=== PATIENT | female | born 1950 | race Caucasian/White ===

== ENCOUNTER 2018-02-15 12:15 | Observation (INO) ==
[2018-02-15] MEDS ORDERED: Nitroglycerin 0.4 MG TAB.SUBL SL PRN (12:43)
[2018-02-15] MEDS ORDERED: Isovue-370 500 ML INFUS..BTL IV ONE (12:44)
[2018-02-15] MEDS ORDERED: Ondansetron 4 MG/2 ML VIAL IVP ONE (12:45)
[2018-02-15] MEDS ORDERED: 0.9 % Sodium Chloride 500 ML IVC ONE (12:45)
--- NOTE | 2018-02-15 13:01 | Emergency Department Note ---
Disposition Clinical Impression: Iron deficiency Chest pain Qualifiers: Chest pain type: other chest pain Qualified Code(s): R07.89 - Other chest pain Back pain Qualifiers: Back pain location: back pain in unspecified location Chronicity: unspecified Back pain laterality: unspecified Qualified Code(s): M54.9 - Dorsalgia, unspecified Disposition: Admitted As Inpatient Time of Disposition: 14:56 Chest Pain HPI - General Chief Complaint: ED Chest Pain Stated Complaint: CP Time Seen by Provider: 02/15/18 12:18 Source: patient Mode of arrival: ambulatory Limitations: no limitations Vital Signs Reviewed: Yes Nursing Notes Reviewed: Yes - History of Present Illness HPI Narrative: 67-year-old female with history of hypertension, diabetes since for evaluation of chest pain. Patient states that approximately early this morning she started to have right sided chest pain under her armpit. Notes it to be radiating into her back. Patient denies history of this pain in the past. Patient denies history of heart attacks. Does have a history of known aortic stenosis. Patient notes pain is not relieved with anything. No history of coronary artery disease. Reports some nausea but no vomiting. No abdominal pain. Notes shortness of breath related to the chest pain. No fevers or cough. Severity scale (1-10): 8 - Related Data Home Medications Medication Instructions Recorded Confirmed Citalopram [CeleXA] 20 mg PO HS 11/17/15 02/15/18 Esomeprazole Magnesium [Nexium] 40 mg PO HS 11/17/15 02/15/18 Losartan/Hydrochlorothiazide 1 each PO HS 11/17/15 02/15/18 [Hyzaar 100-25 Tablet] Albuterol Sulfate [Ventolin Hfa] 2 puff IH Q4H PRN 12/19/16 02/15/18 Fluticasone Propionate Nasal 2 spr NS DAILY 12/19/16 02/15/18 [Flonase] Fluticasone/Salmeterol [Advair 1 puff IH BID 12/19/16 02/15/18 500-50 Diskus] Allergies Allergy/AdvReac Type Severity Reaction Status Date / Time Sulfa (Sulfonamide Allergy Anaphylaxis Verified 02/15/18 16:07 Antibiotics) Beta-Blockers AdvReac See Verified 02/15/18 16:07 (Beta-Adrenergic Bloc Comments All systems ED: reviewed and negative except as stated. Constitutional: Denies: fever Cardiovascular: Reports: chest pain Respiratory: Reports: dyspnea. Denies: cough Gastrointestinal: Reports: nausea. Denies: abdominal pain, vomiting Musculoskeletal: Reports: back pain Chest Pain PMH - Past Medical History Medical history: Reports: diabetes, hyperlipidemia, hypertension Surgical history: Reports: hysterectomy, knee replacement, orthopedic, other, other Psychiatric history: Reports: depression - Social History Smoking Status: Never smoker Alcohol use: Reports: none, occasionally Drug use: Reports: none Physical Exam - General Limitations: no limitations General appearance: alert, other (Appears uncomfortable) - Head Head exam: atraumatic, normocephalic, normal inspection - Eye Eye exam: Present: normal appearance, PERRL, EOMI - ENT ENT exam: normal exam, normal oropharynx, mucous membranes moist - Neck Neck exam: Present: normal inspection - Chest Chest inspection: Present: normal inspection, symmetric chest wall rise - Respiratory Respiratory exam: Present: normal lung sounds bilaterally. Absent: respiratory distress - Cardiovascular Cardiovascular exam: Present: regular rate, normal rhythm, systolic murmur ( Right sided tunnel border) - Abdominal Exam Abdominal exam: Present: soft, Non-Tender. Absent: guarding, rebound - Extremities Exam Extremities exam: Present: normal inspection. Absent: pedal edema - Expanded Lower Extremity Exam Neurovascular/Tendon exam: Present: normal capillary refill - Back Exam Back exam: Present: normal inspection - Neurological Exam Neurological exam: Present: alert, oriented X3, CN II-XII intact - Skin Skin exam: Present: warm, dry, intact, normal color Course Course Narrative: Patient seen and examined. Initial concerns of chest pain with associated back pain prompted CT Emani chest abdomen pelvis. Patient was taken to the CT scan shortly after arrival to the ED. Patient also had an EKG and basic labs. Disposition likely admission for chest pain. - Reevaluation(s) Reevaluation #1: Patient states her pain has improved however the patient still complaining of some right breast tenderness. Unclear whether this is cardiac in etiology. Given the patient's discomfort noted upon arrival to the ED the patient will be observed with serial troponins. Looking back it does not appear that the patient has had a recent heart catheter here at [facility]. Patient does have known iron deficiency anemia which shows up in her labs and does have plans to get iron transfusion by GI today. Time: 14:54 Vital Signs Temperature 98.0 F 02/15/18 12:21 Pulse Rate 79 02/15/18 12:21 Respiratory Rate 20 02/15/18 12:21 Blood Pressure 182/89 02/15/18 12:21 O2 Sat by Pulse Oximetry 98 02/15/18 12:21 Temperature 98.0 F 02/15/18 16:23 Pulse Rate 53 02/15/18 16:23 Respiratory Rate 18 02/15/18 16:23 Blood Pressure 136/78 02/15/18 16:23 O2 Sat by Pulse Oximetry 97 02/15/18 16:23 Oxygen Delivery Oxygen Delivery Room Air Chest Pain - MDM Narrative Medical decision making narrative: Patient presented in acute distress with chest and back pain. Initial concerns for dissection ruled out by CT scan. Patient residual pain includes around the right breast. This is an atypical presentation. Unclear whether this is ACS related. Patient had appropriate ED evaluation with basic labs negative troponin however cannot necessarily be ruled out with the patient's presenting time. Patient heart score of 5. Patient will be admitted to the hospital service for further evaluation and monitoring regarding her chest pain. - Lab Data Lab results reviewed: Yes I reviewed the patient's lab results. Result diagrams: 02/15/18 12:49 02/15/18 12:49 Lab Results 02/15/18 02/15/18 02/15/18 Range/Units 12:49 12:49 12:49 WBC 4.7 (4.3-11.1) K/mcL RBC 4.66 (3.82-4.97) M/mcL Hgb 13.0 (11.5-15.4) g/dL Hct 39.8 (35.3-44.9) % MCV 85.4 (83.0-100.0) fL MCH 27.9 L (28.0-33.3) pg MCHC 32.7 (31.6-35.5) g/dL RDW 14.1 (11.5-14.5) % Plt Count 210 (140-400) K/mcL MPV 11.2 (9.4-12.4) fL Immature Gran % 0.2 (0-4) % Seg Neutrophils % 59.1 % Lymphocytes % 31.9 % Monocytes % 6.9 % Eosinophils % 1.5 % Basophils % 0.4 % Neutrophils # 2.8 (1.6-8.9) K/mcL Lymphocytes # 1.5 (0.6-4.6) K/mcL Monocytes # 0.3 (0.0-1.3) K/mcL Eosinophils # 0.1 (0.0-0.6) K/mcL Basophils # 0.0 (0.0-0.2) K/mcL PT 11.7 (9.4-12.1) Seconds INR 1.0 APTT 27.6 (26.0-36.0) Seconds Sodium (136-145) mEq/L Potassium (3.5-5.1) mEq/L Chloride (98-107) mEq/L Carbon Dioxide (23-29) mEq/L BUN (8-23) mg/dL Creatinine (0.60-1.20) mg/dL Est GFR ( Amer) (> 60) Est GFR (Non-Af Amer) (> 60) BUN/Creatinine Ratio (6-26) Glucose (70-105) mg/dL Calculated Osmolality (280-300) Calcium (8.6-10.3) mg/dL Troponin I (< 0.04) ng/mL B-Natriuretic Peptide 39 (Less than 100) pg/mL Lipase (11-82) Units/L 02/15/18 02/15/18 Range/Units 12:49 12:49 WBC (4.3-11.1) K/mcL RBC (3.82-4.97) M/mcL Hgb (11.5-15.4) g/dL Hct (35.3-44.9) % MCV (83.0-100.0) fL MCH (28.0-33.3) pg MCHC (31.6-35.5) g/dL RDW (11.5-14.5) % Plt Count (140-400) K/mcL MPV (9.4-12.4) fL Immature Gran % (0-4) % Seg Neutrophils % % Lymphocytes % % Monocytes % % Eosinophils % % Basophils % % Neutrophils # (1.6-8.9) K/mcL Lymphocytes # (0.6-4.6) K/mcL Monocytes # (0.0-1.3) K/mcL Eosinophils # (0.0-0.6) K/mcL Basophils # (0.0-0.2) K/mcL PT (9.4-12.1) Seconds INR APTT (26.0-36.0) Seconds Sodium 137 (136-145) mEq/L Potassium 3.7 (3.5-5.1) mEq/L Chloride 103 (98-107) mEq/L Carbon Dioxide 25 (23-29) mEq/L BUN 17 (8-23) mg/dL Creatinine 0.88 (0.60-1.20) mg/dL Est GFR ( Amer) > 60 (> 60) Est GFR (Non-Af Amer) > 60 (> 60) BUN/Creatinine Ratio 19 (6-26) Glucose 106 H (70-105) mg/dL Calculated Osmolality 286 (280-300) Calcium 9.7 (8.6-10.3) mg/dL Troponin I < 0.03 (< 0.04) ng/mL B-Natriuretic Peptide (Less than 100) pg/mL Lipase 46 (11-82) Units/L - Radiology Data Radiology results reviewed: Yes I reviewed the patient's radiology results. Chest X-Ray 02/15/18 12:25 IMPRESSION: No acute process. D/ / Ilia Carrillo MD / Ilia Carrillo MD Interpreting Provider: Ilia Carrillo MD Abdomen/Pelvis CTA 02/15/18 12:44 IMPRESSION: 1. Ascending aortic ectasia without dissection. 2. No acute pulmonary artery embolism. 3. Fatty liver. 4. Splenic hemangioma. 5. Cholecystectomy. 6. Bilateral renal cysts. D/ / Ilia Carrillo MD / Ilia Carrillo MD Interpreting Provider: Ilia Carrillo MD Chest CTA 02/15/18 12:44 IMPRESSION: 1. Ascending aortic ectasia without dissection. 2. No acute pulmonary artery embolism. 3. Fatty liver. 4. Splenic hemangioma. 5. Cholecystectomy. 6. Bilateral renal cysts. D/ / Ilia Carrillo MD / Ilia Carrillo MD Interpreting Provider: Ilia Carrillo MD - EKG Data EKG attestation: Yes I reviewed and interpreted this EKG. EKG shows normal: sinus rhythm Rate: normal Rhythm: NSR [place]/QRS: normal QTc: other Interpretation: no acute changes Heart Score - Score History: Moderately Suspicious EKG: Non Specific repolarisation Disturbance Age: Greater than 65 Risk Factors: 1-2 risk factors Troponin: Less than normal limit HEART Score Total: 5 S.B.A.R. - S.Abby.Spencer Situation: Demographics Background: Presenting Complaint Assessment: Vital Signs, Course and respsone to treatment, Patient/Family Expectation Recommendation: Barrier(s) to disposition, Recommendation based on pending studies, treatments, or consults S.B.A.RJoey Report Given to: Dr. Betzaida Hendrix Repor Time: 14:56 Attestation Statement - Attestation Attestation: I examined this patient and my medical decision-making was reviewed with the Resident Physician. I agree with the documented findings, disposition and treatment plan as described except to the extent set forth below. Findings consistent with chest pain. Initial cardiac biomarkers are negative. Chest pain is atypical in nature. We will proceed with admission for turning of cardiac biomarkers given age and risk factors.
[2018-02-15 13:21] LABS: Basophils % 0.4 %; Eosinophils # 0.1 K/mcL (0.0-0.6); Eosinophils % 1.5 %; Hematocrit 39.8 % (35.3-44.9); Immature Granulocytes % 0.2 % (0-4); Lymphocytes # 1.5 K/mcL (0.6-4.6); Lymphocytes % 31.9 %; Mean Corpuscular HGB Conc 32.7 g/dL (31.6-35.5); Mean Corpuscular Hemoglobin 27.9 pg (28.0-33.3); Mean Corpuscular Volume 85.4 fL (83.0-100.0); Mean Platelet Volume 11.2 fL (9.4-12.4); Monocytes # 0.3 K/mcL (0.0-1.3); Monocytes % 6.9 %; Neutrophils # 2.8 K/mcL (1.6-8.9); Platelet Count 210 K/mcL (140-400); Red Blood Count 4.66 M/mcL (3.82-4.97); Red Cell Distribution Width 14.1 % (11.5-14.5); Segmented Neutrophils % 59.1 %
[2018-02-15 13:26] LABS: Prothrombin Time 11.7 Seconds (9.4-12.1)
[2018-02-15 13:28] LABS: Activated Partial Thrombo Time 27.6 Seconds (26.0-36.0)
[2018-02-15 13:33] LABS: BUN/Creatinine Ratio 19 (6-26); Blood Urea Nitrogen 17 mg/dL (8-23); Calcium 9.7 mg/dL (8.6-10.3); Carbon Dioxide 25 mEq/L (23-29); Chloride 103 mEq/L (98-107); Glucose 106 mg/dL (70-105); Osmolality,Calculated 286 (280-300); Potassium 3.7 mEq/L (3.5-5.1); Sodium 137 mEq/L (136-145); Troponin I < 0.03 ng/mL (< 0.04); eGFR For Non-African Americans > 60 (> 60)
[2018-02-15] MEDS ORDERED: Aspirin 325 MG TABLET PO ONE (13:35)
[2018-02-15] MEDS ORDERED: *HR* FentaNYL (PF) 100 MCG/2 ML VIAL IVP ONE (14:04)
[2018-02-15] MEDS ORDERED: Aspirin Enteric Coated 81 MG Tablet PO ONE (15:50)
[2018-02-15] MEDS ORDERED: Naloxone 0.4 MG/ML INJ IVP PRN (15:53)
[2018-02-15] MEDS ORDERED: *HR* HYDROcodone/Acet 5/325 mg TABLET PO PRN (15:53)
[2018-02-15] MEDS ORDERED: *HR* Promethazine 25 MG/ML VIAL IVP PRN (16:31)
[2018-02-15] MEDS ORDERED: Dextrose Gel 15 GM/37.5 ML TUBE PO PRN ×2 (16:36)
[2018-02-15] MEDS ORDERED: *HR* Dextrose 50 % in Water (Syg) 50 ML SYRINGE IVP PRN (16:36)
[2018-02-15] MEDS ORDERED: D5% in Water 1,000 ML IVC PRN (16:36)
--- NOTE | 2018-02-15 16:42 | Internal Med History&Physical ---
<DianaLuther mendoza - Last Filed: 02/15/18 17:22> Date of Encounter: 02/15/18 Time of Encounter: 15:15 Internal Medicine - H&P: HPI Chief complaint: CP Admitted From: Emergency Dept Plans for Post Hospital Care: Home History of present illness: Ms. Torres is a 67 year old female w/PMH of diabetes controlled by Januvia oral medication, HLD, HTN, asthma, and GERD presents from the ED w/CC of CP that began this morning once patient woke up. Patient states chest pain came on while she was at rest sitting in a chair playing a video game and presented as intermittent heaviness under her right breast, right axilla, and right shoulder blade which did not fully resolve. No aggravating or alleviating factors. Patient also reports bilateral hands and feet became numb, she developed a headache, and became nauseous. Denies diaphoresis or vomiting. Reports history of aortic stenosis and iron deficiency requiring infusions. Patient states she had a nuclear pharm stress test at [facility] 2 weeks ago and was sent to [facility] for an LHC 1 week ago without stent placement. Patient was told at [facility] the valve is thin but not bad enough to repair at this point. Pt. reports chilling but denies recent illness, fever, changes in vision, unusual bleeding, cough, chest congestion, abdominal pain, diarrhea, constipation, dizziness, lightheadedness, pre-syncope, or syncope. Past Med Surg Social Fam HX - Past Medical History Source: patient, old records reviewed, obtained from family Medical history: asthma, diabetes, GERD, hyperlipidemia, hypertension Additional medical history: aortic stenosis Psychiatric history: depression - Past Surgical History Surgical History: hysterectomy (Partial), knee replacement (Right partial), orthopedic, other (2 pins in back), other Additional surgical history: colonoscopy. Back Surgery - Social History Smoking Status: Never smoker Smokeless Tobacco Status: No Alcohol use: none, occasionally Drug use: none Current living situation: Home, With Family Activity Level: Independent ambulation Recent Out of Country Travel Within the Last 8 Weeks: No Exposure or Possible Exposure to Illness During Travel: No - Family History Father Race: Family Member Ethnicity: Non- Living Status: Age at : 69 Cause of : Colon cancer Hx Family Cancer: Yes (Colon) Mother Race: Family Member Ethnicity: Non- Living Status: Age at : 76 Cause of : CVA Hx Family Cardiac Disorders: Yes (CVA, TIA) Hx Family Neurologic Disorders: Yes (CVA, TIA) Internal Medicine - H&P: Meds Citalopram [CeleXA] 20 mg PO HS 11/17/15 [History] Esomeprazole Magnesium [Nexium] 40 mg PO HS 11/17/15 [History] Losartan/Hydrochlorothiazide [Hyzaar 100-25 Tablet] 1 each PO HS 11/17/15 [ History] Albuterol Sulfate [Ventolin Hfa] 2 puff IH Q4H PRN 12/19/16 [History] Fluticasone Propionate Nasal [Flonase] 2 spr NS DAILY 12/19/16 [History] Fluticasone/Salmeterol [Advair 500-50 Diskus] 1 puff IH BID 12/19/16 [History] 3 Allergy/AdvReac Type Severity Reaction Status Date / Time Sulfa (Sulfonamide Allergy Anaphylaxis Verified 02/15/18 16:07 Antibiotics) Beta-Blockers AdvReac See Verified 02/15/18 16:07 (Beta-Adrenergic Bloc Comments All Systems PM: A 10-system review of systems was performed and is negative for pertinent findings except as documented above in the HPI. - Constitutional Constitutional: as per HPI, chills, fatigue, weakness, no fever(s), no night sweats - EENT Eyes: no change in vision, no discharge, no pain, no photophobia Ears: no ear discharge, no ear pain, no tinnitus Nose, mouth and throat: no dysphagia, no nasal discharge, no neck pain, no sore throat - Breasts Breasts: as per HPI - Cardiovascular Cardiovascular ROS IM: as per HPI, chest pain, no diaphoresis, no dyspnea, no lightheadedness, no palpitations, no syncope - Respiratory Respiratory: no cough, no dyspnea, no wheezing, no excessive phlegm production - Gastrointestinal Gastrointestinal: no abdominal pain, no diarrhea, no hematemesis, no hematochezia, no melena, no nausea, no vomiting - Genitourinary Genitourinary: no change in urinary stream, no dysuria, no flank pain, no hematuria Menstruation: as per HPI, post hysterectomy (Partial) - Musculoskeletal Musculoskeletal ROS IM: as per HPI, numbness, tingling - Integumentary Integumentary IM: no rash, no unusual bruising - Neurological Neurological ROS: as per HPI, numbness, tingling, weakness, no confusion, no convulsions, no focal weakness, no tremor(s) - Psychiatric Psychiatric: as per HPI, depression - Endocrine Endocrine IM: as per HPI - Hematologic/Lymphatic Hematologic/Lymphatic: no easy bruising - Allergic/Immunologic Allergic/Immunologic: as per HPI - Constitutional Vitals: Temp Pulse Resp BP Pulse Ox 98.0 F 53 18 136/78 97 02/15/18 16:23 02/15/18 16:23 02/15/18 16:23 02/15/18 16:23 02/15/18 16:23 General appearance: Present: cooperative, mild distress (CP), A&O X 3, pleasant , answers questions appropriately Exam: Patient examined at bedside in ED. Patient resting in bed and reports intermittent CP that is not resolving. States she had nuclear stress test 2 weeks ago @ [facility] and [facility] w/o stent placement 1 week ago @ [facility]. Reports CP as pressure under right breast, right axilla, and right shoulder blade. Accompanied by headache and nausea. Pt. denies any other complaints at this time. Pt. states she was due to have iron infusion today and Dr. Sharma sees her. Told pt. I would let Dr. Sharma know she is here. VS: 98.6F temp, HR 53, RR 18, BP 136/78, and SpO2 97% on RA. Plan to do ACS r/o discussed w/pt. and who expressed understanding and agreement. - Head Head exam: Present: atraumatic, normocephalic - Eye Eye exam: Present: PERRL, conjuntiva pink, sclera anicteric Pupils: Present: PERRL - ENT ENT exam: Present: normal exam - Neck Neck exam general surgery: Present: normal inspection, supple, trachea midline. Absent: lymphadenopathy - Respiratory Respiratory exam: Present: CTAB. Absent: accessory muscle use, rales, rhonchi, wheezes - Cardiovascular Cardiovascular exam: Present: RRR, +S1, +S2. Absent: diastolic murmur, gallop, rubs, systolic murmur - GI/Abdominal GI/Abdominal exam: Present: normal bowel sounds, soft, no peritoneal signs. Absent: distended, tenderness - Rectal Rectal exam: Present: deferred - Additional comments: exam deferred. - Extremities Exam Extremities exam: Present: warm, radial pulses palpable and symmetrical. Absent : calf tenderness, cyanotic, pedal edema - Back Exam Back exam: Present: normal inspection - Neurological Exam Neurological exam: Present: alert, CN II-XII intact, oriented X3, no focal deficits. Absent: pronater drift, facial droop, speech deficit - Psychiatric Psychiatric exam: Present: normal affect, normal mood - Skin Skin exam: Present: dry, intact Internal Med - H&P Results - Labs CBC & Chem 7: 02/15/18 12:49 02/15/18 12:49 - EKG Data EKG shows normal: sinus rhythm - EKG Data Prior EKG available for review: yes EKG comments: 02/15/18 16:49 EKG dated 11/11/15 shows sinus rhythm with left ventricular hypertrophy and ST- T change. EKG dated 02/15/18 shows sinus rhythm with probable LVH with secondary repolarization abnormality and borderline prolonged QT interval. - Diagnostic Studies Chest x-ray Additional comments: Impressions Chest X-Ray 02/15/18 12:25 IMPRESSION: No acute process. D/ / Ilia Carrillo MD / Ilia Carrillo MD Interpreting Provider: Ilia Carrillo MD CT scan - chest Additional comments: Impressions Chest CTA 02/15/18 12:44 IMPRESSION: 1. Ascending aortic ectasia without dissection. 2. No acute pulmonary artery embolism. 3. Fatty liver. 4. Splenic hemangioma. 5. Cholecystectomy. 6. Bilateral renal cysts. D/ / 02/15/2018 13:34:18 Ilia Carrillo MD / edith Interpreting Provider: Ilia Carrillo MD CT scan - abdomen Additional comments: Impressions Abdomen/Pelvis CTA 02/15/18 12:44 IMPRESSION: 1. Ascending aortic ectasia without dissection. 2. No acute pulmonary artery embolism. 3. Fatty liver. 4. Splenic hemangioma. 5. Cholecystectomy. 6. Bilateral renal cysts. D/ / 02/15/2018 13:34:18 Ilia Carrillo MD / edith Interpreting Provider: Ilia Carrillo MD - Assessment and plan (1) Chest pain Current Visit: Yes Status: Acute Assessment and plan: Acute CP that began this morning once patient woke up. Patient states chest pain came on while she was at rest sitting in a chair playing a video game and presented as intermittent heaviness under her right breast, right axilla, and right shoulder blade which did not fully resolve. No aggravating or alleviating factors. Patient also reports bilateral hands and feet became numb, she developed a headache, and became nauseous. Denies diaphoresis or vomiting. States CP still present on exam in ED. Reports nuclear stress test @ [facility] 2 weeks ago and LHC @ [facility] 1 week ago w/o stent placement. Records requisitioned from both hospitals. Hx of aortic stenosis. Initial troponin < 0.03. Will trend. Echocardiogram. Continuous cardiac telemetry. Cardiology consult ordered and discussed w/Dr. Champagne d/t pts. risk factors and I appreciate the consult and recommendations as always. ASA. 80 mg. Lipitor NOW. SL Nitro PRN. Continue pts. HTN medications. Supplemental O2 w/titration and SpO2 monitoring PRN. Pt. discussed w/Dr. Taylor who agrees w/plan of care. Pt. is high risk for cardiac event and further morbidity d/t CP w/o aggravating or alleviating factors, hx of aortic stenosis, recent LHC and stress test d/t similar sx, hx; and risk factors of HTN, HLD, and DM. Observation. Qualifiers: Chest pain type: other chest pain Qualified Code(s): R07.89 - Other chest pain; R07.8 - Other chest pain (2) Nausea Current Visit: Yes Status: Acute Assessment and plan: Acute nausea w/CP sx. IVP Phenergan 12.5 Q6HR PRN for N/V ordered. Will continue pts. PO Nexium. (3) Aortic stenosis Current Visit: Yes Status: Chronic Assessment and plan: Hx of chronic aortic stenosis. Pt. told at [facility] one week ago that thinning valve is currently not bad enough for repair. Echocardiogram ordered. Qualifiers: Cardiac valve disease etiology: etiology unspecified Qualified Code(s): I35.0 - Nonrheumatic aortic (valve) stenosis (4) HLD (hyperlipidemia) Current Visit: Yes Status: Chronic Assessment and plan: Hx of chronic HLD. Lipid panel in a.m. labs. 80 mg Lipitor NOW d/t CP. Pt. does not currently take statin. Consider adding Lipitor to home medications based on lipid panel results if warranted. Qualifiers: Hyperlipidemia type: pure hypercholesterolemia Qualified Code(s): E78.00 - Pure hypercholesterolemia, unspecified; E78.0 - Pure hypercholesterolemia (5) HTN (hypertension) Current Visit: Yes Status: Chronic Assessment and plan: Hx of chronic HTN. Monitor pt. and VS. Continue pts Hyzaar and add IVP hydralazine 10 mg Q6HR PRN w/parameters. Qualifiers: Hypertension type: essential hypertension Qualified Code(s): I10 - Essential (primary) hypertension (6) Diabetes Current Visit: Yes Status: Chronic Assessment and plan: Hx of chronic diabetes controlled by oral Januvia. Will hold oral medication and administer low-dose correction sliding scale insulin and hypoglycemic protocol. BG checks ACHS. A1c in a.m. labs. Cardiac/ADA diet. 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 Continue pts. PO Nexium. Qualifiers: Esophagitis presence: esophagitis presence not specified Qualified Code(s) : K21.9 - Gastro-esophageal reflux disease without esophagitis (8) Asthma Current Visit: Yes Status: Chronic Assessment and plan: Hx of chronic asthma. Stable. Continue pts. inhalers. Supplemental O2 w/ titration and SpO2 monitoring PRN. Qualifiers: Asthma severity: mild Asthma persistence: intermittent Asthma complication type: uncomplicated Qualified Code(s): J45.20 - Mild intermittent asthma, uncomplicated (9) Iron deficiency Current Visit: Yes Status: Chronic Assessment and plan: Hx of chronic iron deficiency requiring iron transfusions. Pt. reports she was supposed to have iron infusion today but did not d/t CP. States Dr. Sharma is her GI physician. Had curbside discussion about pt. w/Dr. Sharma w/plan to get iron profile now and complete iron transfusion as OP. I appreciate the consult and recommendations as always. (10) DVT prophylaxis Current Visit: Yes Status: Acute Assessment and plan: Heparin SQ Q8HR for DVT prophylaxis. Monitor pt. for signs of bleeding. - Time Spent With Patient Total time spent is greater than 50% in coordination of care (as documented) at patient's floor/unit and/or counseling patient: Greater than 35 minutes <Soy Taylor - Last Filed: 02/15/18 18:36> Date of Encounter: 02/15/18 Internal Medicine - H&P: HPI History of present illness: Ms. Torres is a 67 year old female All Systems PM: A 10-system review of systems was performed and is negative for pertinent findings except as documented above in the HPI. - Constitutional Vitals: Temp Pulse Resp BP Pulse Ox 98.0 F 53 18 136/78 97 02/15/18 16:23 02/15/18 16:23 02/15/18 16:23 02/15/18 16:23 02/15/18 16:23 Internal Med - H&P Results - Labs CBC & Chem 7: 02/15/18 12:49 02/15/18 12:49 - Assessment and plan (1) Chest pain Current Visit: Yes Status: Acute Qualifiers: Chest pain type: other chest pain Qualified Code(s): R07.89 - Other chest pain; R07.8 - Other chest pain (2) Iron deficiency Current Visit: Yes Status: Chronic (3) Nausea Current Visit: Yes Status: Acute (4) Aortic stenosis Current Visit: Yes Status: Chronic Qualifiers: Cardiac valve disease etiology: etiology unspecified Qualified Code(s): I35.0 - Nonrheumatic aortic (valve) stenosis (5) Diabetes Current Visit: Yes Status: Chronic Qualifiers: Diabetes mellitus type: type 2 Diabetes mellitus shelter insulin use: without shelter use Diabetes mellitus complication status: with unspecified complications Qualified Code(s): E11.8 - Type 2 diabetes mellitus with unspecified complications (6) HLD (hyperlipidemia) Current Visit: Yes Status: Chronic Qualifiers: Hyperlipidemia type: pure hypercholesterolemia Qualified Code(s): E78.00 - Pure hypercholesterolemia, unspecified; E78.0 - Pure hypercholesterolemia (7) HTN (hypertension) Current Visit: Yes Status: Chronic Qualifiers: Hypertension type: essential hypertension Qualified Code(s): I10 - Essential (primary) hypertension (8) GERD (gastroesophageal reflux disease) Current Visit: Yes Status: Chronic Qualifiers: Esophagitis presence: esophagitis presence not specified Qualified Code(s) : K21.9 - Gastro-esophageal reflux disease without esophagitis (9) Asthma Current Visit: Yes Status: Chronic Qualifiers: Asthma severity: mild Asthma persistence: intermittent Asthma complication type: uncomplicated Qualified Code(s): J45.20 - Mild intermittent asthma, uncomplicated (10) DVT prophylaxis Current Visit: Yes Status: Acute - Time Spent With Patient Total time spent is greater than 50% in coordination of care (as documented) at patient's floor/unit and/or counseling patient: - Attending Attestation Patient independently seen and examined by myself. Case discussed with nurse practitioner. Agree with history and physical assessment and plan as above. Patient presented with right-sided chest pain radiating to her back. CTA ruled out aortic dissection. Initial troponin unremarkable. Patient recently had cardiac evaluation in left heart catheter at [facility] however today. Since with different character of chest pain. Patient does have a history of aortic stenosis. On exam the patient is very pleasant and appropriate and currently states that she feels improved with mild discomfort in her right side of her chest. Heart is regular rate and rhythm with 2/6 systolic murmur. Patient will be admitted for observation and serial troponins. Due to the patient's risk factors agree with consultation with cardiology for further recommendations.
[2018-02-15 16:43] LABS: % Iron Saturation 14 % (15-50); Iron 66 mcg/dL (50-170); Transferrin 339 mg/dL (203-362)
[2018-02-15] MEDS: Budesonide/Formoterol 160/4.5 1 PUFF INH IH SCH (20:42)
[2018-02-15] MEDS: Insulin LISPRO 300 UNITS/3 ML VIAL SQ SCH (22:23)
[2018-02-15] MEDS: *HR* Heparin 5,000 UNIT/ML VIAL SQ SCH (22:28)
[2018-02-15] MEDS: Losartan/HCTZ 50-12.5 TABLET PO SCH (22:28)
[2018-02-15] MEDS: Acetaminophen 325 MG TABLET PO PRN (23:16)
[2018-02-16 01:24] LABS: Basophils % 0.7 %; Eosinophils # 0.1 K/mcL (0.0-0.6); Eosinophils % 2.1 %; Hematocrit 32.5 % (35.3-44.9); Hemoglobin 10.7 g/dL (11.5-15.4); Immature Granulocytes % 0.2 % (0-4); Lymphocytes # 1.4 K/mcL (0.6-4.6); Lymphocytes % 32.7 %; Mean Corpuscular HGB Conc 32.9 g/dL (31.6-35.5); Mean Corpuscular Hemoglobin 28.4 pg (28.0-33.3); Mean Corpuscular Volume 86.2 fL (83.0-100.0); Mean Platelet Volume 10.7 fL (9.4-12.4); Monocytes # 0.4 K/mcL (0.0-1.3); Monocytes % 8.8 %; Neutrophils # 2.4 K/mcL (1.6-8.9); Platelet Count 165 K/mcL (140-400); Red Blood Count 3.77 M/mcL (3.82-4.97); Red Cell Distribution Width 14.4 % (11.5-14.5); Segmented Neutrophils % 55.5 %
[2018-02-16 01:44] LABS: BUN/Creatinine Ratio 19 (6-26); Blood Urea Nitrogen 16 mg/dL (8-23); Carbon Dioxide 25 mEq/L (23-29); Chloride 105 mEq/L (98-107); Potassium 3.4 mEq/L (3.5-5.1); Sodium 138 mEq/L (136-145)
[2018-02-16 01:45] LABS: Alanine Aminotransferase 18 Units/L (7-52); Albumin 3.8 g/dL (3.5-5.7); Alkaline Phosphatase 34 Units/L (34-104); Aspartate Amino Transferase 20 Units/L (13-39); Bilirubin,Total 0.5 mg/dL (0.3-1.0); Calcium 8.7 mg/dL (8.6-10.3); Chol/HDL Ratio 8.1 (0-4.9); Cholesterol 250 mg/dL (< 200); Globulin 1.9 g/dL (2.4-3.5); Glucose 85 mg/dL (70-105); HDL Cholesterol 31 mg/dL (40-59); LDL Cholesterol,Calculated 188 mg/dL (0-99); Osmolality,Calculated 286 (280-300); Total Protein 5.7 g/dL (6.4-8.9); Triglycerides 154 mg/dL (< 150); eGFR For Non-African Americans > 60 (> 60)
[2018-02-16] MEDS: *HR* Heparin 5,000 UNIT/ML VIAL SQ SCH ×3 (05:02→20:40)
[2018-02-16 07:04] LABS: Estimated Average Glucose 128 mg/dl; Hemoglobin A1C 6.1 %
[2018-02-16] MEDS: Budesonide/Formoterol 160/4.5 1 PUFF INH IH SCH ×2 (07:40→21:00)
[2018-02-16] MEDS: Acetaminophen 325 MG TABLET PO PRN (09:40)
[2018-02-16] MEDS: Aspirin Enteric Coated 81 MG Tablet PO SCH (09:40)
[2018-02-16] MEDS: Insulin LISPRO 300 UNITS/3 ML VIAL SQ SCH ×4 (09:42→20:38)
--- NOTE | 2018-02-16 11:03 | Cardiology Consult Note ---
<Noe Roberto - Last Filed: 02/16/18 11:00> Date of Encounter: 02/16/18 Time of Encounter: 11:00 Assessment and Plan (1) Chest pain Current Visit: Yes Status: Acute Troponin negative. No acute ECG findings. Reports LHC 1 week ago at [facility] without intervention--request records. TTE completed--EF preserved, moderate . Recommend dedicated Doppler study for aortic stenosis. CP was at rest, reports nitro did improve pain. Continue ASA, Statin. No BB due to bradycardia. Will add low dose Imdur 30mg daily to see if this helps with her symptoms. Await records. Order dedicated doppler study to evaluate . Will discuss and review with Dr. Champagne. Qualifiers: Chest pain type: other chest pain Qualified Code(s): R07.89 - Other chest pain; R07.8 - Other chest pain (2) Aortic stenosis Current Visit: Yes Status: Chronic As above, TTE with Moderate aortic stenosis. Mild aortic regurgitation. No pulmonary hypertension. Recommend dedicated Doppler study for aortic stenosis. Qualifiers: Cardiac valve disease etiology: etiology unspecified Qualified Code(s): I35.0 - Nonrheumatic aortic (valve) stenosis Discussion w patient/family: The assessment and plan as outlined above was discussed with the patient and/or family members who expressed understanding and agreement. All questions were answered. Thank you for involving us in the care of your patient. Please call with any questions. I will discuss and review with Dr. Champagne and make changes as necessary. History of Present Illness Consult date: 02/16/18 Requesting physician: Soy Taylor Consult reason: Chest pain Chief complaint: chest pain History of present illness: Ms. Torres is a 67 year old female w/PMH of diabetes controlled by Januvia oral medication, HLD, HTN, asthma, and GERD presents from the ED w/CC of CP that began yesterday morning once patient woke up. Patient states chest pain came on while she was at rest sitting in a chair playing a video game and presented as intermittent heaviness under her right breast, right axilla, and right shoulder blade which did not fully resolve. No aggravating or alleviating factors. Patient also reports bilateral hands and feet became numb, she developed a headache, and became nauseous. Denies diaphoresis or vomiting. Reports history of aortic stenosis and iron deficiency requiring infusions. Patient states she had a nuclear pharm stress test at [facility] 2 weeks ago and was sent to [facility] for an LHC 1 week ago without stent placement. Patient was told at [facility] the valve is thin but not bad enough to repair at this point. Troponins negative. Cardiology consulted for further recs. TTE resulted-- LVEF 65%. Normal LV chamber size, wall thickness and systolic function. Indeterminate diastolic function. Normal right ventricular structure and function. Moderate aortic stenosis. Mild aortic regurgitation. No pulmonary hypertension. Recommend dedicated Doppler study for aortic stenosis. Past Med Surg Social Fam HX - Past Medical History Medical history: diabetes, hyperlipidemia, hypertension Additional medical history: aortic stenosis Psychiatric history: depression - Past Surgical History Surgical History: hysterectomy, knee replacement, orthopedic, other, other Additional surgical history: colonoscopy. Back Surgery - Social History Smoking Status: Never smoker Smokeless Tobacco Status: No Alcohol use: none, occasionally Drug use: none - Family History Father Race: Family Member Ethnicity: Non- Living Status: Age at : 69 Cause of : Colon cancer Hx Family Cancer: Yes (Colon) Mother Race: Family Member Ethnicity: Non- Living Status: Age at : 76 Cause of : CVA Hx Family Cardiac Disorders: Yes (CVA, TIA) Hx Family Neurologic Disorders: Yes (CVA, TIA) Medications and Allergies Citalopram [CeleXA] 20 mg PO HS 11/17/15 [History] Esomeprazole Magnesium [Nexium] 40 mg PO HS 11/17/15 [History] Losartan/Hydrochlorothiazide [Hyzaar 100-25 Tablet] 1 each PO HS 11/17/15 [ History] Albuterol Sulfate [Ventolin Hfa] 2 puff IH Q4H PRN 12/19/16 [History] Fluticasone Propionate Nasal [Flonase] 2 spr NS DAILY 12/19/16 [History] Fluticasone/Salmeterol [Advair 500-50 Diskus] 1 puff IH BID 12/19/16 [History] 3 Allergy/AdvReac Type Severity Reaction Status Date / Time Sulfa (Sulfonamide Allergy Anaphylaxis Verified 02/15/18 16:07 Antibiotics) Beta-Blockers AdvReac See Verified 02/15/18 16:07 (Beta-Adrenergic Bloc Comments All Systems Review: The remainder of the systems were reviewed and are negative - Cardiovascular Cardiovascular: as per HPI, chest pain at rest, chest pain with exertion, radiating jaw, neck or arm pain Physical Examination Vital Signs, Last 4 Hours Resp Pulse Ox 02/16/18 07:40 18 96 Vital Signs Temp Pulse Resp BP Pulse Ox 02/16/18 07:40 18 96 02/16/18 06:48 98.0 F 61 18 110/59 02/16/18 02:46 97.5 F L 66 16 104/66 97 02/15/18 23:11 106/64 02/15/18 23:05 126/71 02/15/18 22:39 98.0 F 76 16 146/67 93 02/15/18 20:42 16 95 02/15/18 19:05 97.9 F 61 16 126/59 97 02/15/18 16:23 98.0 F 53 18 136/78 97 02/15/18 15:24 98.6 F 57 12 138/87 99 02/15/18 12:34 98.0 F 79 20 182/89 98 02/15/18 12:21 98.0 F 79 20 182/89 98 Intake and Output 02/15/18 02/16/18 02/16/18 23:59 07:59 15:59 Other: Weight 72.235 kg 72.9 kg Blood Glucose* 116 103 Patient Weight 02/16/18 23:59 Weight 72.9 kg General: Conversant, No Apparent Distress HEENT: Atraumatic, Normocephaly, Mucus Membranes Moist Neck: No JVD, Normal carotid pulses Cardiac: Reg Rate and Rhythm, Other (2/6 STEPHANIE noted) Lungs: Normal Breath Sounds, No Wheeze, Rales, Rhonchi Neuro: Alert and responsive, No focal deficits noted Abdomen: Soft, Non-Tender Skin: No rashes noted on visualized skin Musculoskeletal: No Chest Wall Tenderness Extremities: No Clubbing, No Cyanosis, No Edema, Normal Pulses Results 02/16/18 00:37 02/16/18 00:37 Lab Results 02/15/18 02/16/18 02/16/18 18:54 00:37 00:37 WBC 4.3 Hgb 10.7 L D Hct 32.5 L Plt Count 165 Sodium Potassium Chloride Carbon Dioxide BUN Creatinine Glucose Calcium Magnesium Total Bilirubin AST ALT Alkaline Phosphatase Troponin I < 0.03 < 0.03 02/16/18 00:37 WBC Hgb Hct Plt Count Sodium 138 Potassium 3.4 L Chloride 105 Carbon Dioxide 25 BUN 16 Creatinine 0.86 Glucose 85 Calcium 8.7 Magnesium 2.0 Total Bilirubin 0.5 AST 20 ALT 18 Alkaline Phosphatase 34 Troponin I Short CBC 02/16/18 02/15/18 Range/Units 00:37 12:49 WBC 4.3 4.7 (4.3-11.1) K/mcL Hgb 10.7 L D 13.0 (11.5-15.4) g/dL Hct 32.5 L 39.8 (35.3-44.9) % Plt Count 165 210 (140-400) K/mcL Neutrophils # 2.4 2.8 (1.6-8.9) K/mcL BMP 02/16/18 02/15/18 Range/Units 00:37 12:49 Sodium 138 137 (136-145) mEq/L Potassium 3.4 L 3.7 (3.5-5.1) mEq/L Chloride 105 103 (98-107) mEq/L Carbon Dioxide 25 25 (23-29) mEq/L BUN 16 17 (8-23) mg/dL Creatinine 0.86 0.88 (0.60-1.20) mg/dL Glucose 85 106 H (70-105) mg/dL Calcium 8.7 9.7 (8.6-10.3) mg/dL Cardiac Enzymes 02/16/18 02/15/18 02/15/18 Range/Units 00:37 18:54 12:49 Troponin I < 0.03 < 0.03 < 0.03 (< 0.04) ng/mL Liver Function 02/16/18 Range/Units 00:37 Total Bilirubin 0.5 (0.3-1.0) mg/dL AST 20 (13-39) Units/L ALT 18 (7-52) Units/L Alkaline Phosphatase 34 (34-104) Units/L Albumin 3.8 (3.5-5.7) g/dL Impressions Chest X-Ray 02/15/18 12:25 IMPRESSION: No acute process. D/ / Ilia Carrillo MD / Ilia Carrillo MD Interpreting Provider: Ilia Carrillo MD Abdomen/Pelvis CTA 02/15/18 12:44 IMPRESSION: 1. Ascending aortic ectasia without dissection. 2. No acute pulmonary artery embolism. 3. Fatty liver. 4. Splenic hemangioma. 5. Cholecystectomy. 6. Bilateral renal cysts. D/ / 02/15/2018 13:34:18 Ilia Carrillo MD / edith Interpreting Provider: Ilia Carrillo MD Chest CTA 02/15/18 12:44 IMPRESSION: 1. Ascending aortic ectasia without dissection. 2. No acute pulmonary artery embolism. 3. Fatty liver. 4. Splenic hemangioma. 5. Cholecystectomy. 6. Bilateral renal cysts. D/ / 02/15/2018 13:34:18 Ilia Carrillo MD / edith Interpreting Provider: Ilia Carrillo MD Echocardiogram 02/15/18 15:42 Impressions: LVEF 65%. Normal LV chamber size, wall thickness and systolic function. Indeterminate diastolic function. Normal right ventricular structure and function. Moderate aortic stenosis. Mild aortic regurgitation. No pulmonary hypertension. Recommend dedicated Doppler study for aortic stenosis. Left Ventricular Wall Motion: Rest Echo Findings All wall segments showed normal motion. Findings: Study Quality * Technically sub-optimal due to need doppler for aortic stenosis. ECG Findings * Normal sinus rhythm. Left Ventricle * LVEF 65%. * Normal LV chamber size, wall thickness and systolic function. * Indeterminate diastolic function. Right Ventricle * Normal right ventricular structure and function. Left Atrium * Normal left atrial size. Right Atrium * Normal right atrial size. Interatrial Septum * Interatrial septum not well evaluated. Aortic Valve * Severely calcified aortic valve leaflets. * Mild aortic regurgitation. * Moderate aortic stenosis. * The estimated aortic valve area was approximately 1.5 cm2. * V1 140 v2 300,PG/MG , LVOT 2, LACI 1.5 Mitral Valve * Mild mitral annular calcification * No mitral regurgitation. * No mitral stenosis. Tricuspid Valve * Normal tricuspid valve structure and function. * Trace tricuspid regurgitation. * Estimated RVSP is 28 mmHg. * Estimated RA pressure is 5 mmHg. * No pulmonary hypertension. Pulmonic Valve * Pulmonic valve not well visualized. * No pulmonic regurgitation. Aorta * Normally sized aortic root. Pericardium * The pericardium appears normal. IVC * Normal IVC dimensions and inspiratory collapse. Active Medications Acetaminophen (Tylenol) 650 mg PO Q6HR PRN PRN Reason: Mild Pain/Fever Stop: 08/17/18 15:54 Last Admin: 02/16/18 09:40 Dose: 650 mg Hydrocodone Bitart/Acetaminophen ([place] 5-325 Mg) 1 tab PO Q6HR PRN PRN Reason: Moderate Pain Stop: 08/17/18 15:54 Albuterol Sulfate (Albuterol Inhaler) 2 puff IH Q4H PRN PRN Reason: Shortness Of Breath Stop: 08/17/18 15:44 Aspirin (Aspirin Ec) 81 mg PO DAILY [facility] Stop: 08/18/18 09:01 Last Admin: 02/16/18 09:40 Dose: 81 mg Atorvastatin Calcium (Lipitor) 80 mg PO HS [facility] Stop: 08/17/18 21:01 Last Admin: 02/15/18 22:28 Dose: 80 mg Budesonide/Formoterol Fumarate (Symbicort) 2 puff IH BIDR [facility] Stop: 08/17/18 22:01 Last Admin: 02/16/18 07:40 Dose: 2 puff Citalopram Hydrobromide (Celexa) 20 mg PO HS [facility] Stop: 08/17/18 21:01 Last Admin: 02/15/18 22:28 Dose: 20 mg Dextrose/Water (Dextrose 50% (Syg)) 25 ml IVP AD PRN PRN Reason: Hypoglycemia Stop: 08/17/18 16:37 Fluticasone Propionate (Flonase) 100 mcg NS DAILY [facility] PRN Reason: Protocol Stop: 08/18/18 09:01 Glucagon (Glucagen) 1 mg IM ONCE PRN PRN Reason: Hypoglycemia Stop: 08/17/18 16:37 Glucose (Gluctose) 15 gm PO ONCE PRN PRN Reason: Hypoglycemia Stop: 08/17/18 16:37 Glucose (Gluctose) 30 gm PO ONCE PRN PRN Reason: Hypoglycemia Stop: 08/17/18 16:37 HCTZ/Losartan Potassium (Hyzaar 50/12.5) 2 each PO [facility] Stop: 08/17/18 21:01 Last Admin: 02/15/18 22:28 Dose: 2 each Heparin Sodium (Porcine) (Heparin) 5,000 unit SQ Q8HCO YOANA Stop: 08/17/18 22:01 Last Admin: 02/16/18 05:02 Dose: 5,000 unit Hydralazine HCl (Hydralazine) 10 mg IVP Q6HR PRN PRN Reason: Hypertension Stop: 08/17/18 15:44 Dextrose (Dextrose 5%) 1,000 mls @ 100 mls/hr IVC .Q10H PRN PRN Reason: HYPOGLYCEMIA Stop: 08/17/18 16:37 Insulin Human Lispro (Humalog) 0 units SQ TIDAC YOANA PRN Reason: Protocol Stop: 08/18/18 07:31 Last Admin: 02/16/18 09:42 Dose: Not Given Insulin Human Lispro (Humalog) 0 units SQ HS [facility] PRN Reason: Protocol Stop: 08/17/18 21:01 Last Admin: 02/15/18 22:23 Dose: Not Given Naloxone HCl (Narcan) 0.4 mg IVP Q2MIN PRN PRN Reason: SEE COMMENTS Stop: 08/17/18 15:54 Nitroglycerin (Nitroglycerin) 0.4 mg SL Q5MIN PRN PRN Reason: Chest Pain Stop: 08/17/18 12:44 Last Admin: 02/15/18 23:06 Dose: 0.4 mg Omeprazole (Prilosec) 40 mg PO HS [facility] Stop: 08/17/18 21:01 Last Admin: 02/15/18 22:28 Dose: 40 mg Promethazine HCl (Phenergan) 12.5 mg IVP Q6HR PRN PRN Reason: Nausea And Vomiting Stop: 08/17/18 16:32 - Imaging and Cardiology Echo: report reviewed - EKG Interpretation EKG results cardiology: personally reviewed (SR) Consult Discharge Plan - Plan Referrals: Patrick Rothman MD [Primary Care Provider] - <Eric Champagne - Last Filed: 02/16/18 19:23> Date of Encounter: 02/16/18 - Attending Attestation Patient was seen and evaluated independently by me. Findings, assessment and plan were discussed at length with patient, questions answered. Agree with nurse practitioner's documentation. Addition as follows, 67 yo CF ho HTN, HLD, DM, GERD, anemia. P/w rest and exertional chest discomfort with mild dyspnea 1-2 wks. OSH SPECT abn with non-obstructive epicardial CAD. No ischemic ECG changes, neg trop, nl BNP, Echo mild-moderate , otherwise unremarkable Hb 10s A: Atypical angina, possible microvascular CAD given abn SPECT nl coronary angiogram mild-moderate mild anemia P: will trial of low dose imdur if tolerated; if not, CCB and eval for BB (? ho unclear adverse reaction) c/w ASA, statin repeat Hb, watch for evidence of GIB cardiology clinic f/u Eric Champagne MD, PhD Assessment and Plan Discussion w patient/family: The assessment and plan as outlined above was discussed with the patient and/or family members who expressed understanding and agreement. All questions were answered. Thank you for involving us in the care of your patient. Please call with any questions. History of Present Illness History of present illness: Ms. Torres is a 67 year old female All Systems Review: The remainder of the systems were reviewed and are negative Physical Examination Vital Signs, Last 4 Hours Temp Pulse Resp BP Pulse Ox 02/16/18 18:45 97.7 F 56 16 132/69 95 02/16/18 16:25 98.0 F 51 16 126/62 97 Results 02/16/18 17:29 02/16/18 17:29 Lab Results 02/15/18 02/16/18 02/16/18 18:54 00:37 00:37 WBC 4.3 Hgb 10.7 L D Hct 32.5 L Plt Count 165 Sodium Potassium Chloride Carbon Dioxide BUN Creatinine Glucose Calcium Magnesium Total Bilirubin AST ALT Alkaline Phosphatase Troponin I < 0.03 < 0.03 02/16/18 02/16/18 02/16/18 00:37 17:29 17:29 WBC 4.0 L Hgb 10.7 L Hct 32.4 L Plt Count 186 Sodium 138 135 L Potassium 3.4 L 3.6 Chloride 105 104 Carbon Dioxide 25 22 L BUN 16 16 Creatinine 0.86 1.03 Glucose 85 149 H Calcium 8.7 8.9 Magnesium 2.0 Total Bilirubin 0.5 0.7 AST 20 16 ALT 18 15 Alkaline Phosphatase 34 33 L Troponin I
[2018-02-16] MEDS ORDERED: Isosorbide MONOnitrate (24 HR) 30 MG TAB.ER.24H PO SCH (11:15)
[2018-02-16] MEDS: Fluticasone Propionate Nasal 50 MCG/SPRAY BOTTLE NS SCH (11:20)
--- NOTE | 2018-02-16 13:03 | Internal Med Progress Note ---
Hospitalist Progress Note - Encounter Date of Encounter: 02/16/18 Time of Encounter: 09:00 - Subjective Interval History: Pt denies chest pain or SOB. Mild headache. - Exam Vitals: Temp Pulse Resp BP Pulse Ox 98.2 F 59 16 127/66 95 02/16/18 11:22 02/16/18 11:22 02/16/18 11:22 02/16/18 11:22 02/16/18 11:22 Exam: In NAD, AAO x 3 HEENT: NC/AT PERRL Neck: Supple, no JVD Lungs: CTA b/l Heart: S1S2, RRR Abd: Soft, NT Ext: ROM wnl, no pedal edema Neuro: No focal deficit. - Assessment and Plan (1) Chest pain Current Visit: Yes Status: Acute Assessment and Plan: Etiology is undetermined, pt is pain free now. - CTA negative to PE/dissection/pneumothorax/pneumonia/plearal effusion/lung mass - Three sets of troponin negative. - Cardio consult appreciated, will obtain [facility] result. (2) Iron deficiency Current Visit: Yes Status: Chronic Assessment and Plan: Iron 67 now, f/u as OP. (3) Nausea Current Visit: Yes Status: Acute Assessment and Plan: Improved, denies nausea (4) Aortic stenosis Current Visit: Yes Status: Chronic Assessment and Plan: Hx of chronic aortic stenosis. - Echo shows moderate , will follow cardio recommendation. (5) Diabetes Current Visit: Yes Status: Chronic Assessment and Plan: Hx of chronic diabetes controlled by oral Januvia. Will hold oral medication and administer low-dose correction sliding scale insulin and hypoglycemic protocol. BG checks ACHS. A1c 6.1. Cardiac/ADA diet. (6) HLD (hyperlipidemia) Current Visit: Yes Status: Chronic Assessment and Plan: Lipid penal results reviewed. Cont 80 mg Lipitor NOW. (7) HTN (hypertension) Current Visit: Yes Status: Chronic Assessment and Plan: Hx of chronic HTN. Monitor pt. and VS. Continue pts Hyzaar and add IVP hydralazine 10 mg Q6HR PRN w/parameters. (8) GERD (gastroesophageal reflux disease) Current Visit: Yes Status: Chronic Assessment and Plan: Hx of chronic GERD. Continue pts. PO Nexium. (9) Asthma Current Visit: Yes Status: Chronic Assessment and Plan: Hx of chronic asthma. Stable. Continue pts. inhalers. Supplemental O2 w/ titration and SpO2 monitoring PRN. (10) DVT prophylaxis Current Visit: Yes Status: Acute Assessment and Plan: Heparin SQ Q8HR for DVT prophylaxis. Monitor pt. for signs of bleeding. - Time Spent with Patient Total time spent is greater than 50% in coordination of care (as documented) at patient's floor/unit and/or counseling patient: 30 min 25 - 35 minutes Plan of Care Discussed with: patient Internal Medicine: Result - Labs CBC & Chem 7: 02/16/18 00:37 02/16/18 00:37 Labs: Short CBC 02/16/18 Range/Units 00:37 WBC 4.3 (4.3-11.1) K/mcL Hgb 10.7 L D (11.5-15.4) g/dL Hct 32.5 L (35.3-44.9) % Plt Count 165 (140-400) K/mcL Neutrophils # 2.4 (1.6-8.9) K/mcL BMP 02/16/18 00:37 Sodium 138 Potassium 3.4 L Chloride 105 Carbon Dioxide 25 BUN 16 Creatinine 0.86 Glucose 85 Calcium 8.7 Cardiac Enzymes 02/15/18 02/16/18 Range/Units 18:54 00:37 Troponin I < 0.03 < 0.03 (< 0.04) ng/mL Liver Function 02/16/18 Range/Units 00:37 Total Bilirubin 0.5 (0.3-1.0) mg/dL AST 20 (13-39) Units/L ALT 18 (7-52) Units/L Alkaline Phosphatase 34 (34-104) Units/L Albumin 3.8 (3.5-5.7) g/dL - ABG Interpretation ABG results: PT/INR, D-dimer PT 11.7 Seconds (9.4-12.1) 02/15/18 12:49 - Impressions Impressions Echocardiogram 02/15/18 15:42 Impressions: LVEF 65%. Normal LV chamber size, wall thickness and systolic function. Indeterminate diastolic function. Normal right ventricular structure and function. Moderate aortic stenosis. Mild aortic regurgitation. No pulmonary hypertension. Recommend dedicated Doppler study for aortic stenosis. Left Ventricular Wall Motion: Rest Echo Findings All wall segments showed normal motion. Findings: Study Quality * Technically sub-optimal due to need doppler for aortic stenosis. ECG Findings * Normal sinus rhythm. Left Ventricle * LVEF 65%. * Normal LV chamber size, wall thickness and systolic function. * Indeterminate diastolic function. Right Ventricle * Normal right ventricular structure and function. Left Atrium * Normal left atrial size. Right Atrium * Normal right atrial size. Interatrial Septum * Interatrial septum not well evaluated. Aortic Valve * Severely calcified aortic valve leaflets. * Mild aortic regurgitation. * Moderate aortic stenosis. * The estimated aortic valve area was approximately 1.5 cm2. * V1 140 v2 300,PG/MG 28/17, LVOT 2, LACI 1.5 Mitral Valve * Mild mitral annular calcification * No mitral regurgitation. * No mitral stenosis. Tricuspid Valve * Normal tricuspid valve structure and function. * Trace tricuspid regurgitation. * Estimated RVSP is 28 mmHg. * Estimated RA pressure is 5 mmHg. * No pulmonary hypertension. Pulmonic Valve * Pulmonic valve not well visualized. * No pulmonic regurgitation. Aorta * Normally sized aortic root. Pericardium * The pericardium appears normal. IVC * Normal IVC dimensions and inspiratory collapse. Consult Discharge Plan - Plan Referrals: Patrick Rothman MD [Primary Care Provider] - (1) Chest pain Qualifiers: Chest pain type: other chest pain Qualified Code(s): R07.89 - Other chest pain; R07.8 - Other chest pain (4) Aortic stenosis Qualifiers: Cardiac valve disease etiology: etiology unspecified Qualified Code(s): I35.0 - Nonrheumatic aortic (valve) stenosis (5) Diabetes Qualifiers: Diabetes mellitus type: type 2 Diabetes mellitus custodial insulin use: without custodial use Diabetes mellitus complication status: with unspecified complications Qualified Code(s): E11.8 - Type 2 diabetes mellitus with unspecified complications (6) HLD (hyperlipidemia) Qualifiers: Hyperlipidemia type: pure hypercholesterolemia Qualified Code(s): E78.00 - Pure hypercholesterolemia, unspecified; E78.0 - Pure hypercholesterolemia (7) HTN (hypertension) Qualifiers: Hypertension type: essential hypertension Qualified Code(s): I10 - Essential (primary) hypertension (8) GERD (gastroesophageal reflux disease) Qualifiers: Esophagitis presence: esophagitis presence not specified Qualified Code(s): K21.9 - Gastro-esophageal reflux disease without esophagitis (9) Asthma Qualifiers: Asthma severity: mild Asthma persistence: intermittent Asthma complication type: uncomplicated Qualified Code(s): J45.20 - Mild intermittent asthma, uncomplicated
[2018-02-16 17:43] LABS: Basophils % 0.8 %; Eosinophils # 0.1 K/mcL (0.0-0.6); Eosinophils % 1.8 %; Hematocrit 32.4 % (35.3-44.9); Hemoglobin 10.7 g/dL (11.5-15.4); Immature Granulocytes % 0.3 % (0-4); Lymphocytes % 24.7 %; Mean Corpuscular Hemoglobin 28.5 pg (28.0-33.3); Mean Corpuscular Volume 86.4 fL (83.0-100.0); Mean Platelet Volume 10.6 fL (9.4-12.4); Monocytes # 0.3 K/mcL (0.0-1.3); Monocytes % 7.3 %; Neutrophils # 2.6 K/mcL (1.6-8.9); Platelet Count 186 K/mcL (140-400); Red Blood Count 3.75 M/mcL (3.82-4.97); Red Cell Distribution Width 14.3 % (11.5-14.5); Segmented Neutrophils % 65.1 %
[2018-02-16 18:03] LABS: Alanine Aminotransferase 15 Units/L (7-52); Albumin 3.8 g/dL (3.5-5.7); Albumin/Globulin Ratio 1.9 (1.1-2.2); Alkaline Phosphatase 33 Units/L (34-104); Aspartate Amino Transferase 16 Units/L (13-39); BUN/Creatinine Ratio 16 (6-26); Bilirubin,Total 0.7 mg/dL (0.3-1.0); Blood Urea Nitrogen 16 mg/dL (8-23); Calcium 8.9 mg/dL (8.6-10.3); Carbon Dioxide 22 mEq/L (23-29); Chloride 104 mEq/L (98-107); Glucose 149 mg/dL (70-105); Osmolality,Calculated 284 (280-300); Potassium 3.6 mEq/L (3.5-5.1); Sodium 135 mEq/L (136-145); Total Protein 5.8 g/dL (6.4-8.9); eGFR For Non-African Americans 54 (> 60)
--- NOTE | 2018-02-16 18:56 | Event Note ---
Date of Encounter: 02/16/18 Time of Encounter: 18:35 Around 5 pm, pt c/o "whole body burning", nausea, and shaking. She also has headache since morning which only slightly improve after Tylenol and [facility]. See pt at bedside, pt denies fever, vision change, neck stiffness, sore throat, cough, SOB, chest pain, vomiting, diarrhea, urination discomfort, or any open wound. States she has nausea for 2-3 days, never vomiting. Headache located on front head, bilaterally, 6/10. Pt was started imdur today but she said headache started even before this medication. Pt said she has some stuffy nose recently and feels sick. On exam, vitals stable, BP 131/75, HR 67, T 97.5, SpO2 99% in RA, Glu 145. Pt in moderate acute distress with left leg shaking. Neck is supple. Lungs are clear, same 3/6 systolic murmur, RRR, abd soft, NT, BS normal, no focal neuro deficit. Lab ordered, no leukocytosis, Chem unremarkable, lactate 1.8. Head CT pending result. UA pending. Respiratory penal pending. Pt received phenergan 12.5 mg iv once and she feels much better when I reevaluate her later in . No signs of infection so far. Suspect recent viral infection. Cont supportive treatment and symptomatic treatment.
[2018-02-16 20:31] LABS: Adenovirus Not Detected (Not Detect); Bordetella Pertussis Not Detected (Not Detect); Chlamydophila pneumoniae Not Detected (Not Detect); Coronavirus 229E Not Detected (Not Detect); Coronavirus HKU1 Not Detected (Not Detect); Coronavirus NL63 Not Detected (Not Detect); Coronavirus OC43 Not Detected (Not Detect); Human Metapneumovirus Not Detected (Not Detect); Human Rhinovirus/Enterovirus Not Detected (Not Detect); Influenza A Subtype 2009 H1 Not Detected (Not Detect); Influenza A Untypeable Not Detected (Not Detect); Influenza B Not Detected (Not Detect); Mycoplasma pneumoniae Not Detected (Not Detect); Parainfluenza Virus 1 Not Detected (Not Detect); Parainfluenza Virus 2 Not Detected (Not Detect); Parainfluenza Virus 3 Not Detected (Not Detect); Parainfluenza Virus 4 Not Detected (Not Detect); Respiratory Syncytial Virus Not Detected (Not Detect)
[2018-02-16] MEDS: Losartan/HCTZ 50-12.5 TABLET PO SCH (20:38)
[2018-02-16 21:05] LABS: Bilirubin,Urine Small (Negative); Blood,Urine Negative (Negative); Clarity,Urine Clear (Clear); Color,Urine Yellow (Yellow); Glucose,Urine (UA) Normal (Normal); Ketones,Urine Trace mg/dL (Negative); Leukocyte Esterase,Urine Moderate (Negative); Nitrite,Urine Negative (Negative); PH,Urine 6.5 pH Units (5.0-8.0); Protein,Urine Trace mg/dL (Neg-Trace); Specific Gravity,Urine 1.028 (1.010-1.025)
[2018-02-16 21:06] LABS: Bacteria,Urine Few per hpf (None-Few); Hyaline Casts,Urine Few per lpf (None-Few); Squamous Epithelial Cell,Urine Many per lpf (None-Few); WBC,Urine 50-100 per hpf (0-3)
[2018-02-17 03:42] LABS: Basophils % 0.7 %; Eosinophils # 0.1 K/mcL (0.0-0.6); Eosinophils % 1.9 %; Hematocrit 31.7 % (35.3-44.9); Hemoglobin 10.4 g/dL (11.5-15.4); Immature Granulocytes % 0.2 % (0-4); Lymphocytes # 1.1 K/mcL (0.6-4.6); Lymphocytes % 26.9 %; Mean Corpuscular HGB Conc 32.8 g/dL (31.6-35.5); Mean Corpuscular Hemoglobin 28.5 pg (28.0-33.3); Mean Corpuscular Volume 86.8 fL (83.0-100.0); Mean Platelet Volume 10.5 fL (9.4-12.4); Monocytes # 0.3 K/mcL (0.0-1.3); Monocytes % 7.7 %; Neutrophils # 2.6 K/mcL (1.6-8.9); Platelet Count 170 K/mcL (140-400); Red Blood Count 3.65 M/mcL (3.82-4.97); Red Cell Distribution Width 14.4 % (11.5-14.5); Segmented Neutrophils % 62.6 %
[2018-02-17 04:01] LABS: Alanine Aminotransferase 13 Units/L (7-52); Albumin 3.8 g/dL (3.5-5.7); Alkaline Phosphatase 35 Units/L (34-104); Aspartate Amino Transferase 15 Units/L (13-39); BUN/Creatinine Ratio 15 (6-26); Bilirubin,Total 0.4 mg/dL (0.3-1.0); Blood Urea Nitrogen 15 mg/dL (8-23); Calcium 9.2 mg/dL (8.6-10.3); Carbon Dioxide 26 mEq/L (23-29); Chloride 107 mEq/L (98-107); Globulin 1.9 g/dL (2.4-3.5); Glucose 124 mg/dL (70-105); Osmolality,Calculated 290 (280-300); Potassium 3.9 mEq/L (3.5-5.1); Sodium 139 mEq/L (136-145); Total Protein 5.7 g/dL (6.4-8.9); eGFR For Non-African Americans 57 (> 60)
[2018-02-17] MEDS: *HR* Heparin 5,000 UNIT/ML VIAL SQ SCH (05:40)
[2018-02-17 06:54] VITALS: BP 116/63
[2018-02-17] MEDS: Budesonide/Formoterol 160/4.5 1 PUFF INH IH SCH (07:43)
[2018-02-17] MEDS: Aspirin Enteric Coated 81 MG Tablet PO SCH (08:39)
[2018-02-17] MEDS: Fluticasone Propionate Nasal 50 MCG/SPRAY BOTTLE NS SCH (08:39)
[2018-02-17] MEDS: Insulin LISPRO 300 UNITS/3 ML VIAL SQ SCH (08:54)
--- NOTE | 2018-02-17 10:19 | Event Note ---
Date of Encounter: 02/17/18 Time of Encounter: 10:17 - Cardiology Event Note [facility] records received. [facility] 02/05/18 diffuse mild disease, no intervention. Developed headache after Imdur yesterday. Okay to stop given side effects and no significant disease on LHC. Moderate on TTE. Recommend outpt limited TTE to better evaluate valve. Cardiology signing off. Reconsult PRN. Will coordinate outpt follow-up in 3-4 weeks.
--- NOTE | 2018-02-17 10:49 | Discharge Summary ---
- NOTES TO OUTPATIENT PROVIDER Notes to Outpatient Provider: Pt has abnormal lipid profile, liptor 40mg po qd started. Orders not resulted at time of discharge: Pending orders 02/15/18 22:49 EKG [ECG 12 lead ECG] [ECG] Stat 02/16/18 13:22 EV limited echocardiogram Routine 02/16/18 17:29 Culture,Blood [BC] Stat 02/18/18 04:00 Complete Blood Count [HEME] AM 0400 Comprehensive Metabolic Panel AM 0400 02/19/18 04:00 Complete Blood Count [HEME] AM 0400 Comprehensive Metabolic Panel AM 0400 Date of Encounter: 02/17/18 Time of Encounter: 10:00 - Discharge Diagnosis (1) Chest pain Priority: Primary Status: Acute Qualifiers: Chest pain type: other chest pain Qualified Code(s): R07.89 - Other chest pain; R07.8 - Other chest pain (2) Iron deficiency Priority: Secondary Status: Chronic (3) Nausea Priority: Primary Status: Acute (4) Aortic stenosis Priority: Secondary Status: Chronic Qualifiers: Cardiac valve disease etiology: etiology unspecified Qualified Code(s): I35.0 - Nonrheumatic aortic (valve) stenosis (5) Diabetes Priority: Secondary Status: Chronic Qualifiers: Diabetes mellitus type: type 2 Diabetes mellitus alf insulin use: without alf use Diabetes mellitus complication status: with unspecified complications Qualified Code(s): E11.8 - Type 2 diabetes mellitus with unspecified complications (6) HLD (hyperlipidemia) Priority: Primary Status: Chronic Qualifiers: Hyperlipidemia type: pure hypercholesterolemia Qualified Code(s): E78.00 - Pure hypercholesterolemia, unspecified; E78.0 - Pure hypercholesterolemia (7) HTN (hypertension) Priority: Secondary Status: Chronic Qualifiers: Hypertension type: essential hypertension Qualified Code(s): I10 - Essential (primary) hypertension (8) GERD (gastroesophageal reflux disease) Priority: Secondary Status: Chronic Qualifiers: Esophagitis presence: esophagitis presence not specified Qualified Code(s) : K21.9 - Gastro-esophageal reflux disease without esophagitis (9) Asthma Priority: Secondary Status: Chronic Qualifiers: Asthma severity: mild Asthma persistence: intermittent Asthma complication type: uncomplicated Qualified Code(s): J45.20 - Mild intermittent asthma, uncomplicated (10) DVT prophylaxis Priority: Secondary Status: Acute Hospital course: Ms. Torres is a 67 year old female admitted for chest pain. Pt was placed on cardio monitoring, 3 sets of troponin negative. CTA has been done, negative for PE or dissection. Pt has recent LHC in [facility] one week ago, result reviewed by cardio, minimal change and no intervention. Pt has one episode of headache and nausea yesterday, Lab and head CT unremarkable. Pt will discharge to home today and f/u with PCP and cardiology as outpatient. I saw and examined pt today. AAO x 3, states headache is much less as we hold imdur. No nausea, no chest pain or SOB. Vitals are stable. D/W cardio, will dc imdur. UA shows moderate WBC but pt denies any symptoms of dysuria or discomfort with urination. Pt will d/c home and cont f/u with PCP and cardio. Lab shows high cholesterol and triglyceride, liptor 40mg po daily added. Discharge discussed with: patient - Time Spent with Patient Total time spent providing and/or coordinating discharge services: 30 min Less than 30 minutes - Discharge Medications Prescriptions: Atorvastatin [Lipitor] 40 mg PO HS 30 Days #30 tablet Home Medications: Citalopram [CeleXA] 20 mg PO HS 11/17/15 [History] Esomeprazole Magnesium [Nexium] 40 mg PO HS 11/17/15 [History] Losartan/Hydrochlorothiazide [Hyzaar 100-25 Tablet] 1 each PO HS 11/17/15 [ History] Albuterol Sulfate [Ventolin Hfa] 2 puff IH Q4H PRN 12/19/16 [History] Fluticasone Propionate Nasal [Flonase] 2 spr NS DAILY 12/19/16 [History] Fluticasone/Salmeterol [Advair 500-50 Diskus] 1 puff IH BID 12/19/16 [History] Atorvastatin [Lipitor] 40 mg PO HS 30 Days #30 tablet 02/17/18 [Rx] Promethazine [Phenergan] 12.5 mg PO Q6HR PRN 3 Days #12 tablet 02/17/18 [Rx] Allergies/Adverse Reactions: 3 Allergy/AdvReac Type Severity Reaction Status Date / Time Sulfa (Sulfonamide Allergy Anaphylaxis Verified 02/15/18 16:07 Antibiotics) Beta-Blockers AdvReac See Verified 02/15/18 16:07 (Beta-Adrenergic Bloc Comments Date of admission: 02/15/18 15:15 Primary care physician: Patrick Rothman MD Consults: 02/15/18 15:59 Consult to Lath Hand [CONS] Routine Reason for SW Consult: Please assess patient for possible home needs for post -discharge planning. 02/15/18 16:26 Consult to Cardiology [CONS] Routine Comment: Consulting Provider: Cardiology Tiffanie Reason for Consult: Patient presents w/CP that began this morning, has been intermittent, and has not completely resolved. Pain under right breast, right axilla, and right shoulder blade as pressure. States she has stress test two weeks ago at [facility] and was sent to [facility] 1 week ago for [facility] w/o stent placement. Has hx of aortic stenosis and was told at [facility] that valve is thinning but not enough to repair at this time. Call Completed: Yes Discharging clinician: Jhonny Rasmussen Anticipated date of discharge: 02/17/18 - Constitutional Vitals: Temp Pulse Resp BP Pulse Ox 98.0 F 65 16 116/63 97 02/17/18 06:52 02/17/18 06:52 02/17/18 07:43 02/17/18 06:52 02/17/18 07:43 General appearance: Present: cooperative, A&O X 3, pleasant, no acute distress, answers questions appropriately Exam: in NAD - Head Head exam: Present: atraumatic, normocephalic - Eye Eye exam: Present: PERRL, conjuntiva pink, sclera anicteric Pupils: Present: PERRL - Neck Neck exam general surgery: Present: supple, trachea midline. Absent: lymphadenopathy - Respiratory Respiratory exam: Present: CTAB. Absent: accessory muscle use, rales, rhonchi, wheezes - Cardiovascular Cardiovascular exam: Present: RRR, +S1, +S2. Absent: diastolic murmur, gallop, rubs, systolic murmur - GI/Abdominal GI/Abdominal exam: Present: normal bowel sounds, soft, no peritoneal signs. Absent: distended, tenderness - Extremities Exam Extremities exam: Present: warm, radial pulses palpable and symmetrical. Absent : calf tenderness, cyanotic, pedal edema - Neurological Exam Neurological exam: Present: CN II-XII intact, oriented X3, no focal deficits. Absent: pronater drift, facial droop, speech deficit - Skin Skin exam: Present: dry, intact - Patient Status Disposition: Home, Self-Care Condition: Good Functional capacity at discharge: independent ambulation Overall status at discharge: patient is back to baseline - Discharge Instructions Follow Up With: Patrick Rothman MD [Primary Care Provider] - - Diet and Activity Activity: increase activity as tolerated Diet: diabetic diet, low fat, low cholesterol, low salt diet
--- NOTE | 2018-02-18 14:39 | Electrocardiograph Report ---
[place] [id number] Test Date: 2018-02-15 Pat Name: Claudia Torres Department: 113 Room: 3B33 Gender: Exp[employer]: : [id number] Requested By: Ronaldo Reeves Order Number: [id number] Reading MD: Deuce Colindres Measurements Intervals [place] Rate: 51 P: 29 MT: 181 QRS: 3 QRSD: 89 T: 54 QT: 497 QTc: 474 Interpretive Statements SINUS BRADYCARDIA LEFT VENTRICULAR HYPERTROPHY AND ST-T CHANGE Electronically Signed On 02-18-2018 14:37:48 EDT by Deuce Colindres
== END 2018-02-17 11:57 | disposition home or self-care (01) ==
LOC: 3BNU 12:15 → EMEROOARM 12:15 → 3BNU 15:49
PROVIDERS: ADMIT Internal Medicine; ATTEND Internal Medicine

== ENCOUNTER 2019-02-24 13:32 | Inpatient (IN) ==
[2019-02-24] MEDS ORDERED: Ondansetron 4 MG/2 ML VIAL IVP ONE (14:12)
[2019-02-24 14:22] LABS: Basophils % 0.6 %; Eosinophils # 0.2 K/mcL (0.0-0.6); Eosinophils % 2.5 %; Hematocrit 35.7 % (35.3-44.9); Immature Granulocytes % 0.3 % (0-4); Lymphocytes # 1.7 K/mcL (0.6-4.6); Lymphocytes % 25.7 %; Mean Corpuscular HGB Conc 33.6 g/dL (31.6-35.5); Mean Corpuscular Hemoglobin 30.3 pg (28.0-33.3); Mean Corpuscular Volume 90.2 fL (83.0-100.0); Mean Platelet Volume 10.2 fL (9.4-12.4); Monocytes # 0.6 K/mcL (0.0-1.3); Monocytes % 9.1 %; Platelet Count 235 K/mcL (140-400); Red Blood Count 3.96 M/mcL (3.82-4.97); Red Cell Distribution Width 13.3 % (11.5-14.5); Segmented Neutrophils % 61.8 %; White Blood Count 6.5 K/mcL (4.3-11.1)
[2019-02-24 14:41] LABS: Prothrombin Time 11.1 Seconds (9.4-12.1)
[2019-02-24 14:43] LABS: Activated Partial Thrombo Time 27.5 Seconds (26.0-36.0)
[2019-02-24 14:45] LABS: Albumin 4.1 g/dL (3.5-5.7); Albumin/Globulin Ratio 1.7 (1.1-2.2); Bilirubin,Direct 0.1 mg/dL (0.0-0.2); Bilirubin,Indirect 0.4 mg/dL (0.0-1.2); Bilirubin,Total 0.5 mg/dL (0.3-1.0); Globulin 2.4 g/dL (2.4-3.5); Total Protein 6.5 g/dL (6.4-8.9)
[2019-02-24 14:56] LABS: Troponin I 0.37 ng/mL (< 0.04)
[2019-02-24] MEDS ORDERED: Aspirin 325 MG TABLET PO ONE (14:57)
[2019-02-24] MEDS ORDERED: Isovue-370 500 ML BOTTLE IVP ONE (14:58)
[2019-02-24 15:32] LABS: BUN/Creatinine Ratio 20 (6-26); Blood Urea Nitrogen 17 mg/dL (8-23); Calcium 9.2 mg/dL (8.6-10.3); Carbon Dioxide 24 mEq/L (23-29); Chloride 105 mEq/L (98-107); Glucose 85 mg/dL (70-105); Osmolality,Calculated 283 (280-300); Potassium 3.7 mEq/L (3.5-5.1); Sodium 136 mEq/L (136-145); eGFR For African Americans > 60 (> 60); eGFR For Non-African Americans > 60 (> 60)
[2019-02-24] MEDS ORDERED: *HR* Heparin 5,000 UNIT/ML VIAL IVP PRN ×2 (17:15)
[2019-02-24] MEDS ORDERED: *HR* Heparin 5,000 UNIT/ML VIAL IVP ONE (17:15)
[2019-02-24] MEDS ORDERED: Naloxone 0.4 MG/ML INJ IVP PRN (17:38)
[2019-02-24 17:54] LABS: Hematocrit 36.7 % (35.3-44.9); Hemoglobin 11.9 g/dL (11.5-15.4); Mean Corpuscular HGB Conc 32.4 g/dL (31.6-35.5); Mean Corpuscular Hemoglobin 30.2 pg (28.0-33.3); Mean Corpuscular Volume 93.1 fL (83.0-100.0); Mean Platelet Volume 10.1 fL (9.4-12.4); Platelet Count 189 K/mcL (140-400); Red Blood Count 3.94 M/mcL (3.82-4.97); Red Cell Distribution Width 13.2 % (11.5-14.5); White Blood Count 7.4 K/mcL (4.3-11.1)
[2019-02-24 17:57] LABS: Heparin anti-factor XA UFH 0.05 IU/mL (0.30-0.70)
[2019-02-24 17:59] LABS: Prothrombin Time 11.3 Seconds (9.4-12.1)
[2019-02-24] MEDS: Heparin 25,000 UNIT/250 ML D5W 25,000 UNIT/250 ML IV.SOLN IVC SCH (18:02)
[2019-02-24] MEDS: Budesonide/Formoterol 160/4.5 1 PUFF INH IH SCH (20:20)
[2019-02-24] MEDS: traZODone 50 MG TABLET PO SCH (22:36)
[2019-02-24] MEDS: Loratadine 10 MG TABLET PO SCH (22:37)
[2019-02-25 00:59] LABS: BUN/Creatinine Ratio 18 (6-26); Blood Urea Nitrogen 18 mg/dL (8-23); Calcium 8.6 mg/dL (8.6-10.3); Carbon Dioxide 27 mEq/L (23-29); Chloride 103 mEq/L (98-107); Glucose 152 mg/dL (70-105); Osmolality,Calculated 285 (280-300); Potassium 3.6 mEq/L (3.5-5.1); Sodium 135 mEq/L (136-145); eGFR For African Americans > 60 (> 60); eGFR For Non-African Americans 57 (> 60)
[2019-02-25 01:22] LABS: Basophils % 0.5 %; Eosinophils # 0.2 K/mcL (0.0-0.6); Hematocrit 31.7 % (35.3-44.9); Hemoglobin 10.4 g/dL (11.5-15.4); Immature Granulocytes % 0.2 % (0-4); Lymphocytes # 1.5 K/mcL (0.6-4.6); Lymphocytes % 25.4 %; Mean Corpuscular HGB Conc 32.8 g/dL (31.6-35.5); Mean Corpuscular Hemoglobin 30.9 pg (28.0-33.3); Mean Corpuscular Volume 94.1 fL (83.0-100.0); Mean Platelet Volume 10.2 fL (9.4-12.4); Monocytes # 0.5 K/mcL (0.0-1.3); Neutrophils # 3.8 K/mcL (1.6-8.9); Platelet Count 166 K/mcL (140-400); Red Blood Count 3.37 M/mcL (3.82-4.97); Red Cell Distribution Width 13.2 % (11.5-14.5); Segmented Neutrophils % 62.9 %
[2019-02-25] MEDS ORDERED: hydroCHLOROthiazide 25 MG TABLET PO SCH (09:00)
[2019-02-25] MEDS: Budesonide/Formoterol 160/4.5 1 PUFF INH IH SCH ×2 (09:31→19:36)
[2019-02-25] MEDS: Aspirin 81 MG TAB.CHEW PO SCH (09:37)
[2019-02-25] MEDS: Fluticasone Propionate Nasal 50 MCG/SPRAY BOTTLE NS SCH (09:38)
[2019-02-25] MEDS ORDERED: Dextrose Gel 15 GM/37.5 ML TUBE PO PRN ×2 (10:42)
[2019-02-25] MEDS ORDERED: *HR* Dextrose 50 % in Water (Syg) 50 ML SYRINGE IVP PRN (10:42)
[2019-02-25] MEDS ORDERED: D5% in Water 1,000 ML IVC PRN (10:42)
[2019-02-25] MEDS: Insulin LISPRO 300 UNITS/3 ML VIAL SQ SCH ×2 (11:55→20:08)
[2019-02-25] MEDS: Loratadine 10 MG TABLET PO SCH (20:27)
[2019-02-25] MEDS: traZODone 50 MG TABLET PO SCH (20:27)
[2019-02-25] MEDS: Heparin 25,000 UNIT/250 ML D5W 25,000 UNIT/250 ML IV.SOLN IVC SCH (21:54)
[2019-02-26 02:00] LABS: Basophils % 0.4 %; Eosinophils # 0.1 K/mcL (0.0-0.6); Eosinophils % 2.2 %; Hematocrit 31.9 % (35.3-44.9); Hemoglobin 10.5 g/dL (11.5-15.4); Immature Granulocytes % 0.2 % (0-4); Lymphocytes # 1.2 K/mcL (0.6-4.6); Lymphocytes % 26.5 %; Mean Corpuscular HGB Conc 32.9 g/dL (31.6-35.5); Mean Corpuscular Hemoglobin 30.5 pg (28.0-33.3); Mean Corpuscular Volume 92.7 fL (83.0-100.0); Mean Platelet Volume 10.2 fL (9.4-12.4); Monocytes # 0.3 K/mcL (0.0-1.3); Monocytes % 6.2 %; Neutrophils # 2.9 K/mcL (1.6-8.9); Platelet Count 146 K/mcL (140-400); Red Blood Count 3.44 M/mcL (3.82-4.97); Red Cell Distribution Width 13.4 % (11.5-14.5); Segmented Neutrophils % 64.5 %; White Blood Count 4.5 K/mcL (4.3-11.1)
[2019-02-26 02:22] LABS: Calcium 9.2 mg/dL (8.6-10.3); Potassium 3.6 mEq/L (3.5-5.1)
[2019-02-26] MEDS: Budesonide/Formoterol 160/4.5 1 PUFF INH IH SCH ×2 (07:43→20:17)
[2019-02-26] MEDS: Insulin LISPRO 300 UNITS/3 ML VIAL SQ SCH ×3 (08:39→17:58)
[2019-02-26] MEDS: Aspirin 81 MG TAB.CHEW PO SCH (08:39)
[2019-02-26] MEDS: Fluticasone Propionate Nasal 50 MCG/SPRAY BOTTLE NS SCH (08:40)
[2019-02-26] MEDS ORDERED: Nitroglycerin 0.4 MG TAB.SUBL SL STA (08:59)
[2019-02-26] MEDS ORDERED: *HR* FentaNYL (PF) 100 MCG/2 ML VIAL ONE (13:16)
[2019-02-26] MEDS ORDERED: *HR* Midazolam HCl 2 MG/2 ML VIAL ONE (13:17)
[2019-02-26] MEDS ORDERED: Heparin 1,000 UNITS/500 mL 500 ML ONE (13:18)
[2019-02-26] MEDS ORDERED: *HR* Heparin 10,000 UNIT/10 ML VIAL ONE (13:18)
[2019-02-26] MEDS ORDERED: 0.9 % Sodium Chloride 1,000 ML ONE (13:18)
[2019-02-26] MEDS ORDERED: Nitroglycerin 1,000 MCG/10 ML VIAL IV ONE (13:18)
[2019-02-26] MEDS ORDERED: ISOVUE-370 200 ML INFUS..BTL ONE (13:18)
[2019-02-26] MEDS: 0.9 % Sodium Chloride 1,000 ML IVC SCH (18:06)
[2019-02-26] MEDS: traZODone 50 MG TABLET PO SCH (20:57)
[2019-02-26] MEDS: Loratadine 10 MG TABLET PO SCH (20:59)
[2019-02-26] MEDS ORDERED: Sennosides 8.6 MG TABLET PO PRN (21:07)
[2019-02-27 04:06] LABS: Basophils % 0.3 %; Eosinophils # 0.1 K/mcL (0.0-0.6); Eosinophils % 2.2 %; Hematocrit 30.5 % (35.3-44.9); Hemoglobin 9.8 g/dL (11.5-15.4); Immature Granulocytes % 0.3 % (0-4); Lymphocytes # 0.9 K/mcL (0.6-4.6); Lymphocytes % 25.5 %; Mean Corpuscular HGB Conc 32.1 g/dL (31.6-35.5); Mean Corpuscular Hemoglobin 30.8 pg (28.0-33.3); Mean Corpuscular Volume 95.9 fL (83.0-100.0); Mean Platelet Volume 9.9 fL (9.4-12.4); Monocytes # 0.3 K/mcL (0.0-1.3); Monocytes % 8.5 %; Neutrophils # 2.3 K/mcL (1.6-8.9); Platelet Count 135 K/mcL (140-400); Red Blood Count 3.18 M/mcL (3.82-4.97); Red Cell Distribution Width 13.6 % (11.5-14.5); Segmented Neutrophils % 63.2 %; White Blood Count 3.6 K/mcL (4.3-11.1)
[2019-02-27 04:15] LABS: BUN/Creatinine Ratio 20 (6-26); Blood Urea Nitrogen 15 mg/dL (8-23); Carbon Dioxide 24 mEq/L (23-29); Chloride 110 mEq/L (98-107); Sodium 140 mEq/L (136-145)
[2019-02-27 04:16] LABS: Calcium 8.7 mg/dL (8.6-10.3); Glucose 124 mg/dL (70-105); Osmolality,Calculated 292 (280-300); eGFR For African Americans > 60 (> 60); eGFR For Non-African Americans > 60 (> 60)
[2019-02-27] MEDS: 0.9 % Sodium Chloride 1,000 ML IVC SCH (05:43)
[2019-02-27] MEDS: Budesonide/Formoterol 160/4.5 1 PUFF INH IH SCH (07:36)
[2019-02-27] MEDS: Insulin LISPRO 300 UNITS/3 ML VIAL SQ SCH (08:47)
[2019-02-27] MEDS: Aspirin 81 MG TAB.CHEW PO SCH (08:47)
[2019-02-27] MEDS: Fluticasone Propionate Nasal 50 MCG/SPRAY BOTTLE NS SCH (08:47)
[2019-02-27 10:43] VITALS: BP 151/65
[2019-02-27] MEDS ORDERED: FLU Vac QV 19-20 (6Month+)/PF 0.5 ML SYRINGE IM ONE (13:25)
== END 2019-02-27 15:28 | disposition home or self-care (01) | DRG 282 ==
LOC: EMEROOARM 13:32 → 2NENU 13:32 → SUATTDRO 17:49 → 2NENU 18:55
PROVIDERS: ADMIT Internal Medicine; ATTEND Internal Medicine

== ENCOUNTER 2019-03-05 17:28 | Inpatient (IN) ==
[2019-03-05 18:17] LABS: Basophils % 0.6 %; Eosinophils # 0.1 K/mcL (0.0-0.6); Eosinophils % 1.4 %; Hematocrit 27.5 % (35.3-44.9); Hemoglobin 8.9 g/dL (11.5-15.4); Immature Granulocytes % 0.5 % (0-4); Lymphocytes # 1.1 K/mcL (0.6-4.6); Lymphocytes % 17.5 %; Mean Corpuscular HGB Conc 32.4 g/dL (31.6-35.5); Mean Corpuscular Hemoglobin 29.8 pg (28.0-33.3); Mean Platelet Volume 10.4 fL (9.4-12.4); Monocytes # 0.5 K/mcL (0.0-1.3); Monocytes % 7.7 %; Neutrophils # 4.5 K/mcL (1.6-8.9); Platelet Count 224 K/mcL (140-400); Red Blood Count 2.99 M/mcL (3.82-4.97); Red Cell Distribution Width 13.9 % (11.5-14.5); Segmented Neutrophils % 72.3 %
[2019-03-05 18:19] LABS: White Blood Count 6.2 K/mcL (4.3-11.1)
[2019-03-05] MEDS ORDERED: Pantoprazole 40 MG VIAL IVP ONE (18:20)
[2019-03-05 18:37] LABS: Albumin 4.3 g/dL (3.5-5.7); Bilirubin,Total 0.5 mg/dL (0.3-1.0); Globulin 2.1 g/dL (2.4-3.5); Potassium 3.3 mEq/L (3.5-5.1); Total Protein 6.4 g/dL (6.4-8.9)
[2019-03-05 18:50] LABS: INR 1.1; Prothrombin Time 12.2 Seconds (9.4-12.1)
[2019-03-05] MEDS ORDERED: Dextrose Gel 15 GM/37.5 ML TUBE PO PRN ×2 (21:03)
[2019-03-05] MEDS ORDERED: *HR* Dextrose 50 % in Water (Syg) 50 ML SYRINGE IVP PRN (21:03)
[2019-03-05] MEDS ORDERED: Naloxone 0.4 MG/ML INJ IVP PRN (21:03)
[2019-03-05] MEDS ORDERED: D5% in Water 1,000 ML IVC PRN (21:03)
[2019-03-05] MEDS ORDERED: Potassium Chloride Elixir 20 MEQ/15 ML UDC PO ONE (21:07)
[2019-03-05] MEDS ORDERED: Ringers Solution, Lactated 1,000 ML IVC SCH (21:15)
[2019-03-05 21:41] LABS: Hematocrit 24.1 % (35.3-44.9)
[2019-03-06 03:39] LABS: Basophils % 0.5 %; Eosinophils # 0.1 K/mcL (0.0-0.6); Eosinophils % 2.1 %; Hematocrit 23.2 % (35.3-44.9); Hemoglobin 7.6 g/dL (11.5-15.4); Immature Granulocytes % 0.2 % (0-4); Lymphocytes # 1.5 K/mcL (0.6-4.6); Lymphocytes % 33.1 %; Mean Corpuscular HGB Conc 32.8 g/dL (31.6-35.5); Mean Corpuscular Hemoglobin 30.8 pg (28.0-33.3); Mean Corpuscular Volume 93.9 fL (83.0-100.0); Mean Platelet Volume 10.1 fL (9.4-12.4); Monocytes # 0.4 K/mcL (0.0-1.3); Monocytes % 8.7 %; Neutrophils # 2.4 K/mcL (1.6-8.9); Platelet Count 168 K/mcL (140-400); Red Blood Count 2.47 M/mcL (3.82-4.97); Red Cell Distribution Width 13.6 % (11.5-14.5); Segmented Neutrophils % 55.4 %; White Blood Count 4.4 K/mcL (4.3-11.1)
[2019-03-06 03:58] LABS: Alanine Aminotransferase 30 Units/L (7-52); Albumin 3.7 g/dL (3.5-5.7); Albumin/Globulin Ratio 1.9 (1.1-2.2); Alkaline Phosphatase 34 Units/L (34-104); Aspartate Amino Transferase 19 Units/L (13-39); BUN/Creatinine Ratio 20 (6-26); Bilirubin,Total 0.5 mg/dL (0.3-1.0); Blood Urea Nitrogen 18 mg/dL (8-23); Calcium 8.6 mg/dL (8.6-10.3); Carbon Dioxide 26 mEq/L (23-29); Chloride 107 mEq/L (98-107); Globulin 1.9 g/dL (2.4-3.5); Glucose 108 mg/dL (70-105); INR 1.1; Osmolality,Calculated 288 (280-300); Phosphorous 3.6 mg/dL (2.7-4.5); Potassium 3.6 mEq/L (3.5-5.1); Prothrombin Time 12.9 Seconds (9.4-12.1); Sodium 138 mEq/L (136-145); Total Protein 5.6 g/dL (6.4-8.9); eGFR For African Americans > 60 (> 60); eGFR For Non-African Americans > 60 (> 60)
[2019-03-06] MEDS: Pantoprazole 40 MG VIAL IVP SCH ×2 (05:06→18:12)
[2019-03-06] MEDS: Insulin LISPRO 300 UNITS/3 ML VIAL SQ SCH ×3 (08:55→16:57)
[2019-03-06 09:16] LABS: Hematocrit 24.8 % (35.3-44.9); Hemoglobin 7.9 g/dL (11.5-15.4)
[2019-03-06] MEDS ORDERED: 0.9 % Sodium Chloride 1,000 ML ONE (13:19)
[2019-03-06] MEDS ORDERED: 0.9 % Sodium Chloride Mini Bag 100 ML ONE (13:20)
[2019-03-06] MEDS ORDERED: traZODone 50 MG TABLET PO PRN (16:09)
[2019-03-06 17:39] LABS: Hematocrit 27.1 % (35.3-44.9); Hemoglobin 9.1 g/dL (11.5-15.4)
[2019-03-06] MEDS: Loratadine 10 MG TABLET PO SCH (21:58)
[2019-03-06] MEDS ORDERED: Ipratropium/Albuterol Neb 3 ML IH PRN (22:00)
[2019-03-06] MEDS: Budesonide/Formoterol 160/4.5 1 PUFF INH IH SCH (22:37)
[2019-03-06 23:13] LABS: Hematocrit 26.6 % (35.3-44.9)
[2019-03-07] MEDS ORDERED: *HR* Promethazine 25 MG/ML VIAL IVP ONE (00:36)
[2019-03-07 04:49] LABS: Hematocrit 28.2 % (35.3-44.9); Hemoglobin 9.1 g/dL (11.5-15.4)
[2019-03-07 05:01] LABS: BUN/Creatinine Ratio 12 (6-26); Blood Urea Nitrogen 10 mg/dL (8-23); Calcium 8.9 mg/dL (8.6-10.3); Carbon Dioxide 24 mEq/L (23-29); Chloride 105 mEq/L (98-107); Glucose 136 mg/dL (70-105); Osmolality,Calculated 287 (280-300); Potassium 3.5 mEq/L (3.5-5.1); Sodium 138 mEq/L (136-145); eGFR For African Americans > 60 (> 60); eGFR For Non-African Americans > 60 (> 60)
[2019-03-07] MEDS: Pantoprazole 40 MG VIAL IVP SCH ×2 (05:42→18:13)
[2019-03-07] MEDS: Budesonide/Formoterol 160/4.5 1 PUFF INH IH SCH ×2 (07:29→20:14)
[2019-03-07] MEDS: Insulin LISPRO 300 UNITS/3 ML VIAL SQ SCH ×3 (08:37→17:31)
[2019-03-07 08:55] LABS: INR 1.1; Prothrombin Time 12.8 Seconds (9.4-12.1)
[2019-03-07] MEDS ORDERED: Propofol 500 MG/50 ML INFUS..BTL ONE (11:11)
[2019-03-07] MEDS ORDERED: Lidocaine -MPF 2% 2 ML VIAL ONE (11:12)
[2019-03-07 11:16] LABS: Hematocrit 26.8 % (35.3-44.9)
[2019-03-07 18:27] LABS: Hematocrit 29.2 % (35.3-44.9); Hemoglobin 9.9 g/dL (11.5-15.4)
[2019-03-07] MEDS: Loratadine 10 MG TABLET PO SCH (20:36)
[2019-03-08] MEDS: Pantoprazole 40 MG VIAL IVP SCH (05:13)
[2019-03-08 06:04] LABS: BUN/Creatinine Ratio 11 (6-26); Blood Urea Nitrogen 9 mg/dL (8-23); Calcium 8.4 mg/dL (8.6-10.3); Carbon Dioxide 24 mEq/L (23-29); Chloride 108 mEq/L (98-107); Glucose 112 mg/dL (70-105); Osmolality,Calculated 289 (280-300); Potassium 3.7 mEq/L (3.5-5.1); Sodium 140 mEq/L (136-145); eGFR For African Americans > 60 (> 60); eGFR For Non-African Americans > 60 (> 60)
[2019-03-08 07:21] LABS: Hematocrit 25.9 % (35.3-44.9); Hemoglobin 8.5 g/dL (11.5-15.4)
[2019-03-08] MEDS: Budesonide/Formoterol 160/4.5 1 PUFF INH IH SCH (07:48)
[2019-03-08] MEDS: Insulin LISPRO 300 UNITS/3 ML VIAL SQ SCH ×2 (08:15→12:25)
[2019-03-08] MEDS ORDERED: Aspirin Enteric Coated 81 MG Tablet PO SCH (09:00)
[2019-03-08 11:12] VITALS: BP 138/57
[2019-03-08 12:35] LABS: Hematocrit 27.8 % (35.3-44.9); Hemoglobin 9.2 g/dL (11.5-15.4)
== END 2019-03-08 15:02 | disposition home or self-care (01) | DRG 393 ==
LOC: EMEROOARM 17:28 → 3ANU 17:28 → SUATTDRO 19:03 → 3ANU 20:30
PROVIDERS: ADMIT Internal Medicine; ATTEND Internal Medicine

== ENCOUNTER 2019-04-21 15:36 | Inpatient (IN) ==
[2019-04-21] MEDS ORDERED: 0.9 % Sodium Chloride 1,000 ML IVC ONE (16:39)
[2019-04-21 16:53] LABS: Basophils % 0.6 %; Eosinophils # 0.1 K/mcL (0.0-0.6); Eosinophils % 2.5 %; Hematocrit 21.9 % (35.3-44.9); Immature Granulocytes % 0.4 % (0-4); Lymphocytes # 1.4 K/mcL (0.6-4.6); Lymphocytes % 27.7 %; Mean Platelet Volume 11.1 fL (9.4-12.4); Monocytes # 0.4 K/mcL (0.0-1.3); Monocytes % 8.2 %; Neutrophils # 3.1 K/mcL (1.6-8.9); Platelet Count 229 K/mcL (140-400); Red Blood Count 2.69 M/mcL (3.82-4.97); Red Cell Distribution Width 14.6 % (11.5-14.5); Segmented Neutrophils % 60.6 %; White Blood Count 5.1 K/mcL (4.3-11.1)
[2019-04-21 16:54] LABS: Mean Corpuscular Volume 81.4 fL (83.0-100.0)
[2019-04-21 17:12] LABS: Prothrombin Time 11.6 Seconds (9.4-12.1)
[2019-04-21 17:14] LABS: BUN/Creatinine Ratio 23 (6-26); Blood Urea Nitrogen 19 mg/dL (8-23); Calcium 9.1 mg/dL (8.6-10.3); Carbon Dioxide 24 mEq/L (23-29); Chloride 104 mEq/L (98-107); Glucose 105 mg/dL (70-105); Osmolality,Calculated 291 (280-300); Potassium 3.1 mEq/L (3.5-5.1); Sodium 139 mEq/L (136-145); Troponin I < 0.03 ng/mL (< 0.04); eGFR For African Americans > 60 (> 60); eGFR For Non-African Americans > 60 (> 60)
[2019-04-21 17:35] LABS: Bilirubin,Urine Negative (Negative); Blood,Urine Negative (Negative); Clarity,Urine Cloudy (Clear); Color,Urine Yellow (Yellow); Glucose,Urine (UA) Normal (Normal); Ketones,Urine Negative (Negative); Leukocyte Esterase,Urine Moderate (Negative); Nitrite,Urine Negative (Negative); Protein,Urine Negative (Neg-Trace); Specific Gravity,Urine 1.013 (1.010-1.025); Urobilinogen,Urine Normal (Normal)
[2019-04-21 17:37] LABS: Hyaline Casts,Urine None Seen per lpf (None-Few); RBC,Urine 0-3 per hpf (0-3); Squamous Epithelial Cell,Urine Many per lpf (None-Few)
[2019-04-21] MEDS ORDERED: Pantoprazole 80 MG in 0.9 % Sodium Chloride 50 ML IVPB ONE (17:41)
[2019-04-21 17:47] LABS: Bacteria,Urine Many per hpf (None-Few); Yeast,Urine Moderate per hpf (None Seen)
[2019-04-21] MEDS ORDERED: 0.9 % Sodium Chloride 250 ML ONE ×2 (19:01→22:54)
[2019-04-21] MEDS ORDERED: *HR* Dextrose 50 % in Water (Syg) 50 ML SYRINGE IVP PRN (20:37)
[2019-04-21] MEDS ORDERED: Naloxone 0.4 MG/ML INJ IVP PRN (20:37)
[2019-04-21] MEDS ORDERED: D5% in Water 1,000 ML IVC PRN (20:37)
[2019-04-21] MEDS ORDERED: Dextrose Gel 15 GM/37.5 ML TUBE PO PRN ×2 (20:37)
[2019-04-21] MEDS ORDERED: Potassium Chloride 40 MEQ, Lidocaine 1% 2 ML in 0.9 % Sodium Chloride 500 ML IVPB ONE (20:44)
[2019-04-21 21:26] LABS: Hematocrit 21.8 % (35.3-44.9); Hemoglobin 6.8 g/dL (11.5-15.4)
[2019-04-21] MEDS ORDERED: Ipratropium/Albuterol Neb 3 ML IH PRN (21:31)
[2019-04-21] MEDS ORDERED: Fluticasone Propionate Nasal 50 MCG/SPRAY BOTTLE NS PRN (21:31)
[2019-04-21 21:44] LABS: Albumin 3.6 g/dL (3.5-5.7); Bilirubin,Direct 0.3 mg/dL (0.0-0.2); Bilirubin,Total 1.3 mg/dL (0.3-1.0); Globulin 1.8 g/dL (2.4-3.5); Total Protein 5.4 g/dL (6.4-8.9)
[2019-04-22] MEDS: Insulin LISPRO 300 UNITS/3 ML VIAL SQ SCH ×4 (00:56→16:42)
[2019-04-22] MEDS: Pantoprazole 40 MG VIAL IVP SCH ×2 (05:13→16:41)
[2019-04-22 05:49] LABS: Basophils % 0.7 %; Eosinophils # 0.1 K/mcL (0.0-0.6); Hematocrit 26.3 % (35.3-44.9); Immature Granulocytes % 0.2 % (0-4); Lymphocytes # 1.1 K/mcL (0.6-4.6); Lymphocytes % 24.8 %; Mean Corpuscular HGB Conc 32.7 g/dL (31.6-35.5); Mean Corpuscular Volume 82.7 fL (83.0-100.0); Mean Platelet Volume 11.1 fL (9.4-12.4); Monocytes # 0.4 K/mcL (0.0-1.3); Monocytes % 8.6 %; Neutrophils # 2.7 K/mcL (1.6-8.9); Platelet Count 177 K/mcL (140-400); Red Blood Count 3.18 M/mcL (3.82-4.97); Red Cell Distribution Width 14.2 % (11.5-14.5); Segmented Neutrophils % 62.7 %; White Blood Count 4.3 K/mcL (4.3-11.1)
[2019-04-22 05:50] LABS: Hemoglobin 8.6 g/dL (11.5-15.4)
[2019-04-22 06:03] LABS: Potassium 3.5 mEq/L (3.5-5.1)
[2019-04-22 06:13] LABS: Troponin I 0.05 ng/mL (< 0.04)
[2019-04-22 06:21] LABS: BUN/Creatinine Ratio 19 (6-26); Blood Urea Nitrogen 14 mg/dL (8-23); Calcium 8.1 mg/dL (8.6-10.3); Carbon Dioxide 22 mEq/L (23-29); Chloride 110 mEq/L (98-107); Glucose 105 mg/dL (70-105); Osmolality,Calculated 291 (280-300); Potassium 3.5 mEq/L (3.5-5.1); Sodium 140 mEq/L (136-145); eGFR For African Americans > 60 (> 60); eGFR For Non-African Americans > 60 (> 60)
[2019-04-22] MEDS ORDERED: Nitroglycerin 0.4 MG TAB.SUBL SL PRN (07:53)
[2019-04-22] MEDS: Isosorbide MONOnitrate (24 HR) 30 MG TAB.ER.24H PO SCH (09:11)
[2019-04-22] MEDS ORDERED: Budesonide/Formoterol 160/4.5 1 PUFF INH IH SCH (10:00)
[2019-04-22] MEDS ORDERED: Ferumoxytol 510 MG in 0.9 % Sodium Chloride 100 ML IVPB ONE (12:08)
[2019-04-22] MEDS: Acetaminophen 325 MG TABLET PO PRN ×2 (13:37→21:27)
[2019-04-22] MEDS: Budesonide/Formoterol 160/4.5 1 PUFF INH IH SCH (20:06)
[2019-04-22] MEDS ORDERED: *HR* Promethazine 25 MG/ML VIAL IVP ONE (20:15)
[2019-04-22] MEDS: traZODone 50 MG TABLET PO SCH (21:27)
[2019-04-22] MEDS: Metoprolol XL (24 HR) Succ 50 MG TAB.ER.24H PO SCH (21:27)
[2019-04-23] MEDS: Insulin LISPRO 300 UNITS/3 ML VIAL SQ SCH ×4 (03:51→17:43)
[2019-04-23] MEDS: Pantoprazole 40 MG VIAL IVP SCH ×2 (05:32→17:44)
[2019-04-23] MEDS: Budesonide/Formoterol 160/4.5 1 PUFF INH IH SCH ×2 (07:45→19:54)
[2019-04-23 07:52] LABS: Hematocrit 28.8 % (35.3-44.9)
[2019-04-23] MEDS: Isosorbide MONOnitrate (24 HR) 30 MG TAB.ER.24H PO SCH (07:53)
[2019-04-23] MEDS: Metoprolol XL (24 HR) Succ 50 MG TAB.ER.24H PO SCH (20:53)
[2019-04-23] MEDS: traZODone 50 MG TABLET PO SCH (20:53)
[2019-04-24] MEDS: Insulin LISPRO 300 UNITS/3 ML VIAL SQ SCH ×2 (00:38→06:12)
[2019-04-24] MEDS: Pantoprazole 40 MG VIAL IVP SCH (06:12)
[2019-04-24 06:53] LABS: Eosinophils # 0.2 K/mcL (0.0-0.6); Eosinophils % 4.3 %; Hemoglobin 8.9 g/dL (11.5-15.4); Immature Granulocytes % 0.2 % (0-4); Lymphocytes # 1.2 K/mcL (0.6-4.6); Lymphocytes % 28.3 %; Mean Corpuscular HGB Conc 31.8 g/dL (31.6-35.5); Mean Corpuscular Hemoglobin 26.9 pg (28.0-33.3); Mean Corpuscular Volume 84.6 fL (83.0-100.0); Monocytes # 0.4 K/mcL (0.0-1.3); Monocytes % 9.8 %; Neutrophils # 2.4 K/mcL (1.6-8.9); Platelet Count 199 K/mcL (140-400); Red Blood Count 3.31 M/mcL (3.82-4.97); Red Cell Distribution Width 14.9 % (11.5-14.5); Segmented Neutrophils % 56.4 %; White Blood Count 4.2 K/mcL (4.3-11.1)
[2019-04-24 07:14] LABS: BUN/Creatinine Ratio 9 (6-26); Blood Urea Nitrogen 8 mg/dL (8-23); Calcium 8.9 mg/dL (8.6-10.3); Carbon Dioxide 24 mEq/L (23-29); Chloride 108 mEq/L (98-107); Glucose 106 mg/dL (70-105); Osmolality,Calculated 295 (280-300); Potassium 3.2 mEq/L (3.5-5.1); Sodium 143 mEq/L (136-145); eGFR For African Americans > 60 (> 60); eGFR For Non-African Americans > 60 (> 60)
[2019-04-24] MEDS: Isosorbide MONOnitrate (24 HR) 30 MG TAB.ER.24H PO SCH (08:38)
[2019-04-24] MEDS: Budesonide/Formoterol 160/4.5 1 PUFF INH IH SCH (10:31)
[2019-04-24] MEDS ORDERED: 0.9 % Sodium Chloride 1,000 ML IVC SCH (13:30)
[2019-04-24] MEDS ORDERED: *HR* Propofol 200 MG/20 ML VIAL IVP ONE ×2 (13:47→13:58)
[2019-04-24] MEDS ORDERED: Lidocaine -MPF 2% 2 ML VIAL ONE (13:47)
[2019-04-24] MEDS ORDERED: *HR* PHENYLEPHRINE 1,000 MCG/10 ML SYRINGE IVP ONE (13:48)
[2019-04-24 16:27] VITALS: BP 143/76
== END 2019-04-24 18:29 | disposition home or self-care (01) | DRG 378 ==
LOC: EMEROOARM 15:36 → 2ANU 15:36 → SUATTDRO 20:23 → 2ANU 21:19 → SUATTDRO 04-22 17:42
PROVIDERS: ADMIT Internal Medicine; ATTEND Family Medicine

== ENCOUNTER 2019-06-02 16:08 | Observation (INO) ==
[2019-06-02 17:36] LABS: BUN/Creatinine Ratio 17 (6-26); Blood Urea Nitrogen 14 mg/dL (8-23); Calcium 9.4 mg/dL (8.6-10.3); Carbon Dioxide 25 mEq/L (23-29); Chloride 101 mEq/L (98-107); Glucose 173 mg/dL (70-105); Osmolality,Calculated 291 (280-300); Potassium 3.1 mEq/L (3.5-5.1); Sodium 138 mEq/L (136-145); Troponin I < 0.03 ng/mL (< 0.04); eGFR For African Americans > 60 (> 60); eGFR For Non-African Americans > 60 (> 60)
[2019-06-02 20:02] LABS: Basophils % 0.7 %; Eosinophils # 0.1 K/mcL (0.0-0.6); Eosinophils % 2.7 %; Hematocrit 24.9 % (35.3-44.9); Hemoglobin 7.8 g/dL (11.5-15.4); Immature Granulocytes % 0.5 % (0-4); Lymphocytes # 1.3 K/mcL (0.6-4.6); Lymphocytes % 29.1 %; Mean Corpuscular HGB Conc 31.3 g/dL (31.6-35.5); Mean Corpuscular Hemoglobin 28.6 pg (28.0-33.3); Mean Corpuscular Volume 91.2 fL (83.0-100.0); Mean Platelet Volume 10.8 fL (9.4-12.4); Monocytes # 0.3 K/mcL (0.0-1.3); Monocytes % 7.8 %; Neutrophils # 2.6 K/mcL (1.6-8.9); Platelet Count 196 K/mcL (140-400); Red Blood Count 2.73 M/mcL (3.82-4.97); Red Cell Distribution Width 17.5 % (11.5-14.5); Segmented Neutrophils % 59.2 %; White Blood Count 4.4 K/mcL (4.3-11.1)
[2019-06-02 22:29] LABS: Prothrombin Time 11.6 Seconds (9.4-12.1)
[2019-06-03] MEDS ORDERED: Acetaminophen 325 MG TABLET PO PRN (01:54)
[2019-06-03] MEDS ORDERED: Ondansetron ODT 4 MG TAB.RAPDIS SL PRN (01:54)
[2019-06-03] MEDS ORDERED: Naloxone 0.4 MG/ML INJ IVP PRN (01:54)
[2019-06-03] MEDS ORDERED: Potassium Chloride 40 MEQ, Lidocaine 1% 2 ML in 0.9 % Sodium Chloride 500 ML IVPB ONE (01:56)
[2019-06-03] MEDS: Pantoprazole 40 MG VIAL IVP SCH ×2 (02:25→18:07)
[2019-06-03 02:41] LABS: Basophils % 0.6 %; Eosinophils # 0.1 K/mcL (0.0-0.6); Eosinophils % 2.6 %; Hematocrit 26.6 % (35.3-44.9); Hemoglobin 8.4 g/dL (11.5-15.4); Immature Granulocytes % 0.4 % (0-4); Lymphocytes # 1.4 K/mcL (0.6-4.6); Lymphocytes % 28.8 %; Mean Corpuscular HGB Conc 31.6 g/dL (31.6-35.5); Mean Corpuscular Hemoglobin 27.9 pg (28.0-33.3); Mean Corpuscular Volume 88.4 fL (83.0-100.0); Mean Platelet Volume 10.2 fL (9.4-12.4); Monocytes # 0.4 K/mcL (0.0-1.3); Monocytes % 8.3 %; Neutrophils # 2.9 K/mcL (1.6-8.9); Platelet Count 175 K/mcL (140-400); Red Blood Count 3.01 M/mcL (3.82-4.97); Red Cell Distribution Width 17.9 % (11.5-14.5); Segmented Neutrophils % 59.3 %
[2019-06-03 02:59] LABS: % Iron Saturation 33 % (15-50); Iron 116 mcg/dL (50-170); Transferrin 251 mg/dL (203-362)
[2019-06-03 03:00] LABS: BUN/Creatinine Ratio 18 (6-26); Blood Urea Nitrogen 14 mg/dL (8-23); Calcium 8.7 mg/dL (8.6-10.3); Carbon Dioxide 25 mEq/L (23-29); Chloride 105 mEq/L (98-107); Glucose 118 mg/dL (70-105); Magnesium 1.8 mg/dL (1.6-2.6); Osmolality,Calculated 288 (280-300); Potassium 3.1 mEq/L (3.5-5.1); Sodium 138 mEq/L (136-145); eGFR For African Americans > 60 (> 60); eGFR For Non-African Americans > 60 (> 60)
[2019-06-03] MEDS: Insulin LISPRO 300 UNITS/3 ML VIAL SQ SCH ×3 (08:00→16:53)
[2019-06-03 10:22] LABS: Hematocrit 28.5 % (35.3-44.9)
[2019-06-03] MEDS ORDERED: Propofol 500 MG/50 ML INFUS..BTL ONE (13:27)
[2019-06-03] MEDS ORDERED: Lidocaine -MPF 2% 2 ML VIAL ONE (13:28)
[2019-06-03 15:38] LABS: Hematocrit 28.4 % (35.3-44.9); Hemoglobin 8.8 g/dL (11.5-15.4)
[2019-06-03 22:37] LABS: Hemoglobin 8.8 g/dL (11.5-15.4)
[2019-06-04 04:39] LABS: Basophils % 0.7 %; Eosinophils # 0.2 K/mcL (0.0-0.6); Eosinophils % 3.5 %; Hematocrit 26.4 % (35.3-44.9); Hemoglobin 8.4 g/dL (11.5-15.4); Immature Granulocytes % 0.5 % (0-4); Lymphocytes # 1.1 K/mcL (0.6-4.6); Lymphocytes % 25.8 %; Mean Corpuscular HGB Conc 31.8 g/dL (31.6-35.5); Mean Corpuscular Hemoglobin 27.4 pg (28.0-33.3); Mean Platelet Volume 10.8 fL (9.4-12.4); Monocytes # 0.4 K/mcL (0.0-1.3); Monocytes % 8.1 %; Neutrophils # 2.7 K/mcL (1.6-8.9); Platelet Count 168 K/mcL (140-400); Red Blood Count 3.07 M/mcL (3.82-4.97); Red Cell Distribution Width 17.8 % (11.5-14.5); Segmented Neutrophils % 61.4 %; White Blood Count 4.3 K/mcL (4.3-11.1)
[2019-06-04 04:58] LABS: BUN/Creatinine Ratio 16 (6-26); Blood Urea Nitrogen 13 mg/dL (8-23); Calcium 8.8 mg/dL (8.6-10.3); Carbon Dioxide 26 mEq/L (23-29); Chloride 107 mEq/L (98-107); Glucose 120 mg/dL (70-105); Osmolality,Calculated 293 (280-300); Potassium 3.5 mEq/L (3.5-5.1); Sodium 141 mEq/L (136-145); eGFR For African Americans > 60 (> 60); eGFR For Non-African Americans > 60 (> 60)
[2019-06-04] MEDS: Pantoprazole 40 MG VIAL IVP SCH (06:31)
[2019-06-04] MEDS: Insulin LISPRO 300 UNITS/3 ML VIAL SQ SCH ×3 (09:32→17:00)
[2019-06-04] MEDS: Iron Sucrose Complex 400 MG in 0.9 % Sodium Chloride 250 ML IVPB SCH (14:53)
[2019-06-04] MEDS: Sennosides/Docusate Sodium TABLET PO SCH ×2 (15:09→21:07)
[2019-06-04] MEDS ORDERED: Ipratropium/Albuterol Neb 3 ML IH PRN (17:14)
[2019-06-04] MEDS ORDERED: traZODone 50 MG TABLET PO SCH (21:00)
[2019-06-05 07:04] LABS: Hematocrit 28.1 % (35.3-44.9); Hemoglobin 8.9 g/dL (11.5-15.4); Mean Corpuscular HGB Conc 31.7 g/dL (31.6-35.5); Mean Corpuscular Hemoglobin 27.2 pg (28.0-33.3); Mean Corpuscular Volume 85.9 fL (83.0-100.0); Mean Platelet Volume 10.8 fL (9.4-12.4); Platelet Count 185 K/mcL (140-400); Red Blood Count 3.27 M/mcL (3.82-4.97); Red Cell Distribution Width 17.4 % (11.5-14.5)
[2019-06-05] MEDS ORDERED: Iron Sucrose Complex 400 MG in 0.9 % Sodium Chloride 250 ML IVPB ONE (07:37)
[2019-06-05 08:01] VITALS: BP 108/51
[2019-06-05] MEDS: Insulin LISPRO 300 UNITS/3 ML VIAL SQ SCH (08:42)
[2019-06-05] MEDS: Sennosides/Docusate Sodium TABLET PO SCH (08:47)
[2019-06-05] MEDS: Iron Sucrose Complex 400 MG in 0.9 % Sodium Chloride 250 ML IVPB SCH (08:52)
[2019-06-05] MEDS ORDERED: hydroCHLOROthiazide 25 MG TABLET PO SCH (09:00)
[2019-06-05] MEDS ORDERED: Aspirin 81 MG TAB.CHEW PO SCH (09:00)
[2019-06-05] MEDS ORDERED: Isosorbide MONOnitrate (24 HR) 30 MG TAB.ER.24H PO SCH (09:00)
== END 2019-06-05 12:21 | disposition home or self-care (01) ==
LOC: EMEROOARM 16:08 → CDU 16:08 → SUATTDRO 22:17 → CDU 23:59 → 3ANU 06-04 14:42
PROVIDERS: ADMIT Internal Medicine; ATTEND Internal Medicine

== ENCOUNTER 2019-12-13 15:42 | Inpatient (IN) ==
[2019-12-13 16:27] LABS: Basophils % 0.6 %; Eosinophils # 0.1 K/mcL (0.0-0.6); Eosinophils % 1.1 %; Hematocrit 27.8 % (35.3-44.9); Hemoglobin 8.5 g/dL (11.5-15.4); Immature Granulocytes % 0.3 % (0-4); Lymphocytes # 1.1 K/mcL (0.6-4.6); Mean Corpuscular HGB Conc 30.6 g/dL (31.6-35.5); Mean Corpuscular Hemoglobin 26.1 pg (28.0-33.3); Mean Corpuscular Volume 85.3 fL (83.0-100.0); Mean Platelet Volume 11.1 fL (9.4-12.4); Monocytes # 0.5 K/mcL (0.0-1.3); Monocytes % 7.8 %; Neutrophils # 4.6 K/mcL (1.6-8.9); Platelet Count 251 K/mcL (140-400); Red Blood Count 3.26 M/mcL (3.82-4.97); Red Cell Distribution Width 16.2 % (11.5-14.5); Segmented Neutrophils % 73.2 %; White Blood Count 6.3 K/mcL (4.3-11.1)
[2019-12-13 16:39] LABS: INR 1.1; Prothrombin Time 12.1 Seconds (9.4-12.1)
[2019-12-13 16:42] LABS: Activated Partial Thrombo Time 26.9 Seconds (26.0-36.0)
[2019-12-13 16:50] LABS: Alanine Aminotransferase 19 Units/L (7-52); Albumin 4.7 g/dL (3.5-5.7); Alkaline Phosphatase 41 Units/L (34-104); Aspartate Amino Transferase 23 Units/L (13-39); BUN/Creatinine Ratio 28 (6-26); Bilirubin,Direct 0.1 mg/dL (0.0-0.2); Bilirubin,Indirect 0.6 mg/dL (0.0-1.0); Bilirubin,Total 0.7 mg/dL (0.3-1.0); Blood Urea Nitrogen 28 mg/dL (8-23); Calcium 9.9 mg/dL (8.6-10.3); Carbon Dioxide 19 mEq/L (23-29); Chloride 100 mEq/L (98-107); Globulin 2.4 g/dL (2.4-3.5); Glucose 132 mg/dL (70-105); Lipase 58 Units/L (11-82); Osmolality,Calculated 287 (280-300); Phosphorous 2.7 mg/dL (2.7-4.5); Potassium 2.8 mEq/L (3.5-5.1); Sodium 135 mEq/L (136-145); Total Protein 7.1 g/dL (6.4-8.9); Troponin I < 0.03 ng/mL (< 0.04); eGFR For African Americans > 60 (> 60); eGFR For Non-African Americans 55 (> 60)
[2019-12-13] MEDS ORDERED: Potassium Chloride 40 MEQ, Lidocaine 1% 2 ML in D5% in Water 500 ML IVPB ONE (16:53)
[2019-12-13] MEDS ORDERED: Naloxone 0.4 MG/ML INJ IVP PRN (17:04)
[2019-12-13 17:14] LABS: % Iron Saturation 3 % (15-50); Iron 18 mcg/dL (50-170); Transferrin 401 mg/dL (203-362)
[2019-12-13] MEDS ORDERED: Nitroglycerin 0.4 MG TAB.SUBL SL PRN ×2 (17:42→17:43)
[2019-12-13] MEDS ORDERED: Aspirin Enteric Coated 325 MG Tablet PO SCH (17:45)
[2019-12-13] MEDS ORDERED: Perflutren Lipid Microsphere 1.3 ML in 0.9 % Sodium Chloride 8.7 ML IVP PRN (17:45)
[2019-12-13] MEDS ORDERED: Acetaminophen 325 MG TABLET PO PRN (17:46)
[2019-12-13] MEDS: Aspirin 81 MG TAB.CHEW PO SCH (18:36)
[2019-12-13] MEDS: traZODone 50 MG TABLET PO SCH (19:54)
[2019-12-13] MEDS ORDERED: Dextrose Gel 15 GM/37.5 ML TUBE PO PRN ×2 (21:49)
[2019-12-13] MEDS ORDERED: D5% in Water 1,000 ML IVC PRN (21:49)
[2019-12-13] MEDS ORDERED: *HR* Dextrose 50 % in Water (Vial) 50 ML VIAL IVP PRN (21:49)
[2019-12-13] MEDS: Budesonide/Formoterol 160/4.5 1 PUFF INH IH SCH (21:49)
[2019-12-14 06:03] LABS: Basophils % 0.8 %; Eosinophils # 0.1 K/mcL (0.0-0.6); Eosinophils % 3.1 %; Hematocrit 23.8 % (35.3-44.9); Hemoglobin 6.9 g/dL (11.5-15.4); Lymphocytes # 1.1 K/mcL (0.6-4.6); Lymphocytes % 29.4 %; Mean Corpuscular Hemoglobin 25.7 pg (28.0-33.3); Mean Corpuscular Volume 88.5 fL (83.0-100.0); Mean Platelet Volume 11.1 fL (9.4-12.4); Monocytes # 0.3 K/mcL (0.0-1.3); Monocytes % 8.7 %; Neutrophils # 2.2 K/mcL (1.6-8.9); Platelet Count 184 K/mcL (140-400); Red Blood Count 2.69 M/mcL (3.82-4.97); Red Cell Distribution Width 16.3 % (11.5-14.5); White Blood Count 3.8 K/mcL (4.3-11.1)
[2019-12-14 06:14] LABS: BUN/Creatinine Ratio 23 (6-26); Blood Urea Nitrogen 19 mg/dL (8-23); Calcium 8.2 mg/dL (8.6-10.3); Carbon Dioxide 24 mEq/L (23-29); Chloride 107 mEq/L (98-107); Chol/HDL Ratio 3.2 (0-4.9); Cholesterol 115 mg/dL (< 200); Glucose 117 mg/dL (70-105); HDL Cholesterol 36 mg/dL (40-59); LDL Cholesterol,Calculated 66 mg/dL (< 100); Osmolality,Calculated 291 (280-300); Potassium 3.5 mEq/L (3.5-5.1); Sodium 139 mEq/L (136-145); Triglycerides 64 mg/dL (< 150); eGFR For African Americans > 60 (> 60); eGFR For Non-African Americans > 60 (> 60)
[2019-12-14] MEDS: Budesonide/Formoterol 160/4.5 1 PUFF INH IH SCH ×2 (08:05→22:11)
[2019-12-14] MEDS ORDERED: Ferumoxytol 510 MG in 0.9 % Sodium Chloride 100 ML IVPB ONE (08:15)
[2019-12-14] MEDS: Insulin LISPRO 300 UNITS/3 ML VIAL SQ SCH ×4 (08:33→20:33)
[2019-12-14] MEDS: Aspirin 81 MG TAB.CHEW PO SCH (08:34)
[2019-12-14 11:59] LABS: Hematocrit 24.2 % (35.3-44.9); Hemoglobin 7.1 g/dL (11.5-15.4)
[2019-12-14] MEDS: Sennosides/Docusate Sodium TABLET PO SCH (20:32)
[2019-12-14] MEDS: traZODone 50 MG TABLET PO SCH (20:32)
[2019-12-15 04:16] LABS: Basophils % 0.5 %; Eosinophils # 0.1 K/mcL (0.0-0.6); Eosinophils % 2.9 %; Hematocrit 22.9 % (35.3-44.9); Hemoglobin 6.7 g/dL (11.5-15.4); Immature Granulocytes % 0.3 % (0-4); Lymphocytes # 0.8 K/mcL (0.6-4.6); Mean Corpuscular HGB Conc 29.3 g/dL (31.6-35.5); Mean Corpuscular Hemoglobin 26.2 pg (28.0-33.3); Mean Corpuscular Volume 89.5 fL (83.0-100.0); Mean Platelet Volume 10.8 fL (9.4-12.4); Monocytes # 0.3 K/mcL (0.0-1.3); Monocytes % 9.1 %; Neutrophils # 2.4 K/mcL (1.6-8.9); Platelet Count 166 K/mcL (140-400); Red Blood Count 2.56 M/mcL (3.82-4.97); Red Cell Distribution Width 15.9 % (11.5-14.5); Segmented Neutrophils % 65.2 %; White Blood Count 3.7 K/mcL (4.3-11.1)
[2019-12-15] MEDS ORDERED: Regadenoson 0.4 MG/5 ML SYRINGE IVP ONE (06:13)
[2019-12-15] MEDS: Budesonide/Formoterol 160/4.5 1 PUFF INH IH SCH ×2 (07:39→20:03)
[2019-12-15] MEDS ORDERED: 0.9 % Sodium Chloride 250 ML ONE (08:38)
[2019-12-15] MEDS: Aspirin 81 MG TAB.CHEW PO SCH (08:57)
[2019-12-15] MEDS: Sennosides/Docusate Sodium TABLET PO SCH ×2 (08:57→20:40)
[2019-12-15] MEDS: Insulin LISPRO 300 UNITS/3 ML VIAL SQ SCH ×4 (08:57→20:40)
[2019-12-15 09:11] LABS: BUN/Creatinine Ratio 24 (6-26); Blood Urea Nitrogen 19 mg/dL (8-23); Calcium 8.5 mg/dL (8.6-10.3); Carbon Dioxide 23 mEq/L (23-29); Chloride 107 mEq/L (98-107); Glucose 154 mg/dL (70-105); Osmolality,Calculated 291 (280-300); Potassium 3.7 mEq/L (3.5-5.1); Sodium 138 mEq/L (136-145); eGFR For African Americans > 60 (> 60); eGFR For Non-African Americans > 60 (> 60)
[2019-12-15 18:42] VITALS: BP 124/65
[2019-12-15] MEDS: traZODone 50 MG TABLET PO SCH (20:40)
== END 2019-12-15 21:52 | disposition short-term general hospital (02) | DRG 307 ==
LOC: 3BNU 15:42 → EMEROOARM 15:42 → 3BNU 17:50
PROVIDERS: ADMIT Internal Medicine; ATTEND Internal Medicine

== ENCOUNTER 2020-12-21 10:43 | Observation (INO) ==
[2020-12-21] MEDS ORDERED: Aspirin 81 MG TAB.CHEW PO ONE (11:43)
[2020-12-21] MEDS ORDERED: Isovue-370 500 ML BOTTLE IVP ONE (11:43)
[2020-12-21 12:23] LABS: Basophils % 0.3 %; Eosinophils # 0.1 K/mcL (0.0-0.6); Eosinophils % 2.1 %; Hemoglobin 13.5 g/dL (11.5-15.4); Immature Granulocytes % 0.3 % (0-4); Mean Corpuscular HGB Conc 32.9 g/dL (31.6-35.5); Mean Corpuscular Hemoglobin 30.9 pg (28.0-33.3); Mean Corpuscular Volume 93.8 fL (83.0-100.0); Monocytes # 0.6 K/mcL (0.0-1.3); Neutrophils # 5.1 K/mcL (1.6-8.9); Platelet Count 168 K/mcL (140-400); Red Blood Count 4.37 M/mcL (3.82-4.97); Red Cell Distribution Width 13.7 % (11.5-14.5); Segmented Neutrophils % 74.3 %; White Blood Count 6.8 K/mcL (4.3-11.1)
[2020-12-21 12:33] LABS: INR 1.1; Prothrombin Time 12.7 Seconds (9.4-12.1)
[2020-12-21 12:36] LABS: Activated Partial Thrombo Time 26.5 Seconds (26.0-36.0)
[2020-12-21 12:59] LABS: BUN/Creatinine Ratio 16 (6-26); Blood Urea Nitrogen 12 mg/dL (8-23); Calcium 9.7 mg/dL (8.6-10.3); Carbon Dioxide 21 mEq/L (23-29); Chloride 104 mEq/L (98-107); Glucose 102 mg/dL (70-105); Osmolality,Calculated 286 (280-300); Sodium 138 mEq/L (136-145); Troponin I < 0.03 ng/mL (< 0.04); eGFR For African Americans > 60 (> 60); eGFR For Non-African Americans > 60 (> 60)
[2020-12-21] MEDS ORDERED: Acetaminophen 325 MG TABLET PO PRN (16:22)
[2020-12-21] MEDS ORDERED: Melatonin 3 MG TABLET PO PRN (16:22)
[2020-12-21] MEDS ORDERED: Naloxone 0.4 MG/ML INJ IVP PRN (16:22)
[2020-12-21] MEDS ORDERED: Ondansetron 4 MG/2 ML VIAL IVP PRN (16:22)
[2020-12-21] MEDS ORDERED: Perflutren Lipid Microsphere 1.3 ML in 0.9 % Sodium Chloride 8.7 ML IVP PRN (16:49)
[2020-12-21] MEDS ORDERED: Nitroglycerin 0.4 MG TAB.SUBL SL PRN (16:50)
[2020-12-21] MEDS ORDERED: D5% in Water 1,000 ML IVC PRN (16:59)
[2020-12-21] MEDS ORDERED: Dextrose Gel 15 GM/37.5 ML TUBE PO PRN ×2 (16:59)
[2020-12-21] MEDS ORDERED: *HR* Dextrose 50 % in Water (Vial) 50 ML VIAL IVP PRN (16:59)
[2020-12-21] MEDS: *HR* Heparin 5,000 UNIT/ML VIAL SQ SCH (17:57)
[2020-12-21] MEDS ORDERED: traZODone 50 MG TABLET PO SCH (21:00)
[2020-12-22] MEDS: *HR* Heparin 5,000 UNIT/ML VIAL SQ SCH (05:14)
[2020-12-22] MEDS ORDERED: Regadenoson 0.4 MG/5 ML SYRINGE IVP ONE (06:31)
[2020-12-22 07:20] LABS: BUN/Creatinine Ratio 21 (6-26); Blood Urea Nitrogen 16 mg/dL (8-23); Calcium 9.1 mg/dL (8.6-10.3); Carbon Dioxide 23 mEq/L (23-29); Chloride 103 mEq/L (98-107); Glucose 119 mg/dL (70-105); Magnesium 2.1 mg/dL (1.6-2.6); Osmolality,Calculated 284 (280-300); Sodium 136 mEq/L (136-145); Troponin I < 0.03 ng/mL (< 0.04); eGFR For African Americans > 60 (> 60); eGFR For Non-African Americans > 60 (> 60)
[2020-12-22] MEDS ORDERED: Aspirin 81 MG TAB.CHEW PO SCH ×2 (09:00)
[2020-12-22 10:20] VITALS: BP 102/64; O2SAT 94
[2020-12-22] MEDS ORDERED: Acetaminophen IV 1,000 MG/100 ML BAG IVPB ONE (14:07)
[2020-12-22 14:30] VITALS: PULSE 73; TEMP 97.5
== END 2020-12-22 16:12 | disposition home or self-care (01) ==
LOC: SUATTDRO → 3ANU 10:43 → EMEROOARM 10:43 → SUATTDRO 17:55 → 3ANU 19:45
PROVIDERS: ADMIT Internal Medicine; ATTEND Internal Medicine